=== PATIENT | female | born 1960 | race Caucasian/White ===

== ENCOUNTER 2017-11-27 08:06 | Emergency (ER) | payer MEDICARE, MEDICAID ==
[2017-11-27] MEDS ORDERED: Sodium Chloride 0.9% 10 ML Syringe FLUSH PRN (08:26)
--- NOTE | 2017-11-27 08:31 | EDM.PDOC ---
ED HPI GENERAL MEDICAL PROBLEM - General Chief Complaint: Respiratory Problem Stated Complaint: SENT FROM DAY SURGERY Time Seen by Provider: 11/27/17 08:13 Source of Information: Reports: Patient History Limitations: Reports: No Limitations - History of Present Illness INITIAL COMMENTS - FREE TEXT/NARRATIVE: 57-year-old female presents to the ED at the request of day surgery. She presented to day surgery to date for potential bladder sling procedure. She is a patient of Dr. Knox. She was identified to have O2 sats of only 88% on room air. This produced a cancellation of her surgery she was placed on oxygen 2 L/m by nasal cannula and transferred to the ED. Apparently labs were drawn in the surgical stepdown unit. Blood pressure is 98/58. She denies fever. She has a chronic smoker's cough. Is complaining of some left-sided chest pain which is described as a dull achy discomfort. She is a smoker --a pack and a half per day. This has COPD by history alone. She's never required home oxygen therapy. She reports that over the last 3 days she's become increasingly dyspneic on minimal exertion.Dyspnea is much worse than normal . Denies any associated fever or chills. No recent upper respiratory tract infections. No history of myocardial infarction. She was going to have a bladder sling procedure primarily performed because of stress incontinence. Previous abdominal surgeries isthat of laparoscopic-assisted vaginal hysterectomy and BSO. Is unclear whether the ovaries remain. Onset: Today (Identified to be hypoxic when she presented for potential surgery this morning.) Onset Date: 11/27/17 (Dr. Moreira indicates that her respiratory function color seem to have changed dramatically since he reviewed her last week in the clinic for her preoperative assessment.) Duration: Day(s):, Getting Worse (Patient has not felt well with increased shortness of breath on minimal exertion for the last 2-3 days.) Location: Reports: Chest Quality: Reports: Ache Severity: Moderate Improves with: Reports: Rest Worsens with: Reports: Movement Context: Denies: Activity, Exercise, Lifting, Sick Contact, Trauma, Other Associated Symptoms: Reports: Chest Pain (Chronic cough but usually not that productive. Chest pain left lateral chest wall.), Cough, Malaise, Shortness of Breath, Weakness. Denies: No Other Symptoms, Confusion ( Leon is a deep aching discomfort. No pleuritic component to the pain), cough w sputum, Diaphoresis, Fever/Chills, Headaches, Loss of Appetite, Nausea/Vomiting, Rash ( On minimal exertion.), Seizure, Syncope Treatments MANAGER PRIMARY CARE: Reports: Other (see below) (None. Denies any recent changes to her medications other than a change in inhaler for the last few weeks.) Left Chest Pain Score (Numeric/FACES): 0 - Related Data Allergies Allergy/AdvReac Type Severity Reaction Status Date / Time No Known Allergies Allergy Verified 11/27/17 08:56 Home Meds: Home Meds Omeprazole 40 mg PO DAILY 02/22/16 [History] Paliperidone [Invega] 9 mg PO BEDTIME 02/22/16 [History] Sertraline [Zoloft] 100 mg PO BEDTIME 02/22/16 [History] atorvaSTATin [Lipitor] 20 mg PO DAILY 02/22/16 [History] traZODone HCl [Trazodone HCl] 150 mg PO BEDTIME 02/22/16 [History] Acetaminophen 1,000 mg PO DAILY PRN 11/27/17 [History] Albuterol [Proventil HFA] 1 - 2 puff INH ASDIRECTED PRN 11/27/17 [History] Albuterol/Ipratropium [DuoNeb 3.0-0.5 MG/3 ML] 3 ml .XX BID #60 neb 11/27/17 [Rx ] Benztropine Mesylate 2 mg PO BEDTIME 11/27/17 [History] Budesonide/Formoterol Fumarate [Symbicort 80-4.5 Mcg Inhaler] 1 puff INH BID 08/16 [History] Omeprazole 20 mg PO BEDTIME 11/27/17 [History] predniSONE [Deltasone] 20 mg PO ASDIRECTED #15 tablet 11/27/17 [Rx] Past Medical History Cardiovascular History: Reports: High Cholesterol, SOB on Exertion Respiratory History: Reports: COPD, SOB Genitourinary History: Reports: Other (See Below) Other Genitourinary History: leakage of bladder Psychiatric History: Reports: Anxiety, Bipolar, Schizophrenia Other Psychiatric History: borderline schizophrenia 2006 - Past Surgical History Female Surgical History: Reports: Hysterectomy, Tubal Ligation Musculoskeletal Surgical History: Reports: Arthroscopic Knee Social & Family History - Family History Cardiac: Reports: None Respiratory: Reports: None GI: Reports: None : Reports: None OBGYN: Reports: None Musculoskeletal: Reports: None Psychiatric: Reports: Schizophrenia Other Psychiatric Family History: sisters Endocrine/Metabolic: Reports: Diabetes, type II Other Endocrine/Metabolic Family History: mother and brother Hematologic: Reports: None Dermatologic: Reports: None Oncologic: Reports: None - Tobacco Use Smoking Status *Q: Current Every Day Smoker Years of Tobacco use: 40 Packs/Tins Daily: 1 - Alcohol Use Days Per Week of Alcohol Use: 0 - Recreational Drug Use Recreational Drug Use: No Drug Use in Last 12 Months: No - Living Situation & Occupation Living situation: Reports: Occupation: Unemployed ED ROS GENERAL - Review of Systems Review Of Systems: See Below Constitutional: Reports: Malaise, Weakness, Fatigue. Denies: Fever, Chills HEENT: Reports: No Symptoms Respiratory: Reports: Shortness of Breath, Cough. Denies: Wheezing, Pleuritic Chest Pain, Sputum, Hemoptysis (Chronic cough but not bringing up any sputum.) Cardiovascular: Reports: Chest Pain (Has a deep aching discomfort left lateral chest wall.), Dyspnea on Exertion (Much). Denies: Blood Pressure Problem, Claudication, Edema, Lightheadedness, Orthopnea, Palpitations, PND Endocrine: Reports: Fatigue GI/Abdominal: Reports: No Symptoms : Reports: Incontinence Musculoskeletal: Reports: No Symptoms Skin: Reports: No Symptoms Neurological: Reports: No Symptoms Psychiatric: Reports: Depression, Other (History suggests that she has bipolar affective disorder.) Hematologic/Lymphatic: Reports: No Symptoms Immunologic: Reports: No Symptoms ED EXAM, GENERAL - Physical Exam Exam: See Below Exam Limited By: No Limitations General Appearance: Alert, WD/WN, Anxious, Other (Color is grayish in color. Smells cigarette smoke noted. O2 sats are 95-97% on 2 L of oxygen by nasal cannula.) Eye Exam: Bilateral Eye: Normal Inspection Ears: Normal TMs Throat/Mouth: Normal Inspection, Normal Lips, Normal Oropharynx, Other Head: Atraumatic, Normocephalic (Tongue is a little dry. She's been fasting overnight.) Neck: Normal Inspection, Supple, Non-Tender, Full Range of Motion, Other ( Reports that she has a chronic pain along her left mandible that radiates up to the parietal scalp on the left side.). No: Lymphadenopathy (L), Lymphadenopathy (R) Respiratory/Chest: No Respiratory Distress, Chest Non-Tender, Rales (There are rales in both lower lobes worse on the left as compared to the right.), Rhonchi (Scattered rhonchi upper anterior chest.). No: Wheezing Cardiovascular: Regular Rate, Rhythm, No Edema, No Gallop, No Murmur, No Rub Peripheral Pulses: 2+: Posterior Tibial (L), Posterior Tibial (R), Dorsalis Pedis (L), Dorsalis Pedis (R) GI/Abdominal: Normal Bowel Sounds, Soft, Non-Tender, No Organomegaly, No Abnormal Bruit, No Mass, Pelvis Stable Back Exam: Normal Inspection, Full Range of Motion Extremities: Normal Inspection, Normal Range of Motion, Non-Tender, No Pedal Edema Neurological: Alert, Oriented, CN II-XII Intact, Normal Cognition Psychiatric: Anxious Skin Exam: Warm, Intact, Other (Grayish in color. No central or peripheral cyanosis.) EKG INTERPRETATION EKG Date: 11/27/17 Time: 07:30 Rhythm: Other (Sinus rhythm with frequent unifocal PVCs.) Rate (Beats/Min): 84 [place]: Normal P-Wave: Enlarged (Right atrial hypertrophy pattern evident.) QRS: Other (Diffuse mildly decreased voltage in the precordial leads.) ST-T: Normal QT: Normal EKG Interpretation Comments: Abnormal ECG Course - Vital Signs Last Recorded V/S: Last Vital Signs Temp 36.1 C 11/27/17 08:15 Pulse 82 11/27/17 08:15 Resp 14 11/27/17 08:15 BP 122/83 11/27/17 08:15 Pulse Ox 95 11/27/17 09:22 - Orders/Labs/Meds Orders: Active Orders 24 hr Category Date Time Status Oxygen Therapy [RC] ASDIRECTED Care 11/27/17 08:26 Active Peripheral IV Care [RC] . DIRECTED Care 11/27/17 08:26 Active RT Aerosol Therapy [RC] ASDIRECTED Care 11/27/17 09:02 Active Sodium Chloride 0.9% [Saline Flush] Med 11/27/17 08:26 Active 10 ml FLUSH ASDIRECTED PRN Peripheral IV Insertion Adult [OM.PC] Stat Oth 11/27/17 08:25 Ordered Medication Orders Sodium Chloride (Saline Flush) 10 ml FLUSH ASDIRECTED PRN PRN Reason: Keep Vein Open Last Admin: 11/27/17 08:55 Dose: 10 ml Labs: Laboratory Tests 11/27/17 11/27/17 11/27/17 Range/Units 07:16 07:16 07:16 WBC 10.44 H (3.98-10.04) K/mm3 RBC 5.42 H (3.98-5.22) M/mm3 Hgb 16.6 H (11.2-15.7) gm/L Hct 49.5 H (34.1-44.9) % MCV 91.3 (79.4-94.8) fl MCH 30.6 (25.6-32.2) pg MCHC 33.5 (32.2-35.5) g/dl RDW Std Deviation 47.6 H (36.4-46.3) fL Plt Count 272 (182-369) K/mm3 MPV 11.4 (9.4-12.3) fl Neutrophils % (Manual) 59 (40-60) % Band Neutrophils % 0 (0-10) % Lymphocytes % (Manual) 36 (20-40) % Atypical Lymphs % 0 % Monocytes % (Manual) 4 (2-10) % Eosinophils % (Manual) 1 (0.7-5.8) % Basophils % (Manual) 0 L (0.1-1.2) Platelet Estimate Adequate RBC Morph Comment Normal D-Dimer, Quantitative 0.32 (0.19-0.50) mg/L Sodium 136 (136-145) mEq/L Potassium 3.7 (3.5-5.1) mEq/L Chloride 99 (98-107) mEq/L Carbon Dioxide 27 (21-32) mEq/L Anion Gap 13.7 (5-15) BUN 6 L (7-18) mg/dL Creatinine 0.8 (0.55-1.02) mg/dL Est Cr Clr Drug Dosing 77.32 mL/min Estimated GFR (MDRD) > 60 (>60) mL/min BUN/Creatinine Ratio 7.5 L (14-18) Glucose 130 H (74-106) mg/dL Calcium 9.5 (8.5-10.1) mg/dL Magnesium 1.8 (1.8-2.4) mg/dl Total Bilirubin 0.7 (0.2-1.0) mg/dL AST 27 (15-37) U/L ALT 26 (14-59) U/L Alkaline Phosphatase 103 (46-116) U/L Troponin I < 0.017 (0.00-0.056) ng/mL C-Reactive Protein 0.6 (<1.0) mg/dL NT-Pro-B Natriuret Pep (0-125) pg/mL Total Protein 7.8 (6.4-8.2) g/dl Albumin 4.0 (3.4-5.0) g/dl Globulin 3.8 gm/dL Albumin/Globulin Ratio 1.1 (1-2) 11/27/17 Range/Units 07:16 WBC (3.98-10.04) K/mm3 RBC (3.98-5.22) M/mm3 Hgb (11.2-15.7) gm/L Hct (34.1-44.9) % MCV (79.4-94.8) fl MCH (25.6-32.2) pg MCHC (32.2-35.5) g/dl RDW Std Deviation (36.4-46.3) fL Plt Count (182-369) K/mm3 MPV (9.4-12.3) fl Neutrophils % (Manual) (40-60) % Band Neutrophils % (0-10) % Lymphocytes % (Manual) (20-40) % Atypical Lymphs % % Monocytes % (Manual) (2-10) % Eosinophils % (Manual) (0.7-5.8) % Basophils % (Manual) (0.1-1.2) Platelet Estimate RBC Morph Comment D-Dimer, Quantitative (0.19-0.50) mg/L Sodium (136-145) mEq/L Potassium (3.5-5.1) mEq/L Chloride (98-107) mEq/L Carbon Dioxide (21-32) mEq/L Anion Gap (5-15) BUN (7-18) mg/dL Creatinine (0.55-1.02) mg/dL Est Cr Clr Drug Dosing mL/min Estimated GFR (MDRD) (>60) mL/min BUN/Creatinine Ratio (14-18) Glucose (74-106) mg/dL Calcium (8.5-10.1) mg/dL Magnesium (1.8-2.4) mg/dl Total Bilirubin (0.2-1.0) mg/dL AST (15-37) U/L ALT (14-59) U/L Alkaline Phosphatase (46-116) U/L Troponin I (0.00-0.056) ng/mL C-Reactive Protein (<1.0) mg/dL NT-Pro-B Natriuret Pep 12 (0-125) pg/mL Total Protein (6.4-8.2) g/dl Albumin (3.4-5.0) g/dl Globulin gm/dL Albumin/Globulin Ratio (1-2) Meds: Medications Generic Name Dose Route Start Last Admin Trade Name Freq PRN Reason Stop Dose Admin Sodium Chloride 10 ml 11/27/17 08:26 11/27/17 08:55 Saline Flush FLUSH 10 ml ASDIRECTED PRN Administration Keep Vein Open Discontinued Medications Generic Name Dose Route Start Last Admin Trade Name Freq PRN Reason Stop Dose Admin Albuterol/Ipratropium 3 ml 11/27/17 09:01 11/27/17 09:21 Duoneb 3.0-0.5 Mg/3 Ml NEB 11/27/17 09:02 3 ml ONETIME ONE Administration - Radiology Interpretation Free Text/Narrative:: 57-year-old female brought to the ED from the surgical unit where she was planned to have a surgical sling procedure on her bladder this morning. Her O2 sats on room air were 88% and therefore the procedure was canceled. She is complaining of increased dyspnea on minimal exertion over the last 3 or 4 days. She is a smoker of a pack and half of cigarettes per day. She does have a chronic cough but denies any fever or chills. She's complaining of some left- sided chest pain which is described as deep and dull and aching. She's been placed on oxygen at 2 L/m and her sats are 95-97% on room air. Clinically she has known COPD and is on inhalers for this. On examination she appears to have some crackles in both bases suggestive of mild congestive failure. Will therefore have a cardiac workup and as well as a d-dimer assay. Chest x-ray. ECG was done in the surgical suite and I have previously read it. It revealed sinus rhythm at 84/m with frequent unifocal PVCs. There is evidence of left right atrial hypertrophy suggesting pulmonary hypertension. Plan 1 view chest x- ray will be done. She'll be left on oxygen 2 L/m but this time. Peripheral IV started. Routine labs to be collected. Will provide a DuoNeb treatment at this time - Re-Assessments/Exams Free Text/Narrative Re-Assessment/Exam: 11/27/17 09:05 portal chest x-ray reveals slight hyperinflated lung quintanilla. Headache silhouette is within normal limits. There is no pleural effusions or pneumothorax. There is perhaps mild diffuse slight vascular congestion pattern. 11/27/17 10:26 Labs are back. White count is mildly elevated at 10.44. Differential is 59% it feels and no bands reported. Hemoglobin mildly elevated at 16.6 with hematocrit of 49.5. I.e. mild hemoconcentration. The count is normal at 272,000. D-dimer is normal at 0.32. Sodium is 136 with a potassium of 3.7. Chloride is 99 with a bicarbonate 27. Anion gap is 13.7. BUN is 6 with a creatinine of 0.8. GFR is greater than 60. Glucose is 1:30. Calcium is 9.5. Magnesium 1.8. Liver function normal. Troponin I is less than 0.017. C-reactive protein is 0.6. BNP is 12. Therefore labs do not suggest any infective process. They also reveal no signs of congestive heart failure or blood clot in the lung. Therefore her current hypoxia is due to exacerbation of her COPD. Take her off her oxygen now and see where she desaturates to on room air. 11/27/17 11:00: Patient's O2 sat stayed 89-93% on room air. He did go down course with movement. Plan I'm going to arrange for her to have a home nebulizer machine. Will prescribe DuoNeb nebs. One ampule every morning and one before bed to try and stabilize her COPD. She has inhalers which she is to continue use on a when necessary basis. Symbicort is supposed to be used once daily. In the morning to be placed on a short course of prednisone 20 mg twice a day for 5 days and once daily in the morning for another 5 days. She will consult with Dr. Ludy to see where she will go out in [place] for definitive hysterectomy. Her anesthesia needs exceed our facility and therefore she needs to be in a larger institution as she may well end up on the vent for a period of time. She was encouraged to follow-up with her private primary care practitioner to arrange a stop smoking cessation program. She is currently smoking for 1-1/2-3 packs per day. Departure - Departure Time of Disposition: 11:10 Disposition: Home, Self-Care 01 Condition: Fair Clinical Impression: COPD exacerbation - Discharge Information Prescriptions: Albuterol/Ipratropium [DuoNeb 3.0-0.5 MG/3 ML] 3 ml .XX BID #60 neb predniSONE [Deltasone] 20 mg PO ASDIRECTED #15 tablet Instructions: Chronic Obstructive Pulmonary Disease Exacerbation, [id number] Referrals: Indy Davidson PA-C [Primary Care Provider] - Forms: ED Department Discharge Additional Instructions: Evaluation the emergency room this morning in regards to low O2 sats identified preoperatively in the surgical suite. He was thus sent to the ED for further evaluation in this regard. Examination revealed O2 sats of 88-92% at rest. They did vagal lower with walking and exertion. You are near need for oxygen supplementation continuously. Need to consider very hard need to stop smoking. Complete workup done through the ED reveals normal heart shadow and statement of obstructive lung disease without any signs of infection. Similarly no blood clots were identified within the lungs. There is no signs that there is heart related illness or fluid buildup in the lungs. Therefore the cause of the low O2 sats is simply an exacerbation or worsening of your underlying COPD/ emphysema. Suggest treatment with a nebulizer machine at home using DuoNeb in the morning and before bed and using her other inhalers as previously instructed. Suggest a short course of Deltasone 20 mg twice daily with breakfast and supper for 5 days and then 1 tablet in morning only for another [address] Moreira a referral to a larger hospital that can manage her anesthesia needs before contemplating hysterectomy. Follow-up with personal care physician to adopt a smoking cessation program. Prescription written for you to purchase a nebulizer machine from [employer] which is on by [employer]. - My Orders Last 24 Hours: My Active Orders 11/27/17 08:25 Peripheral IV Insertion Adult [OM.PC] Stat 11/27/17 08:26 Oxygen Therapy [RC] ASDIRECTED Peripheral IV Care [RC] . DIRECTED Sodium Chloride 0.9% [Saline Flush] 10 ml FLUSH ASDIRECTED PRN 11/27/17 09:02 RT Aerosol Therapy [RC] ASDIRECTED - Assessment/Plan Last 24 Hours: My Active Orders 11/27/17 08:25 Peripheral IV Insertion Adult [OM.PC] Stat 11/27/17 08:26 Oxygen Therapy [RC] ASDIRECTED Peripheral IV Care [RC] . DIRECTED Sodium Chloride 0.9% [Saline Flush] 10 ml FLUSH ASDIRECTED PRN 11/27/17 09:02 RT Aerosol Therapy [RC] ASDIRECTED
[2017-11-27] MEDS ORDERED: Albuterol/Ipratropium 3.0-0.5 MG/3 ML Neb Soln NEB ONE (09:01)
--- NOTE | 2017-11-27 09:17 | CR ---
Chest: Portable view of the chest was obtained. Comparison: Prior chest CT of 05/03/17 and chest x-ray of 02/24/16. Slight apical pleural thickening is noted. Lungs are clear without acute parenchymal densities. Heart size and mediastinum are normal. Bony structures are grossly intact. Impression: 1. Nothing acute is seen on portable chest x-ray. Diagnostic code #2
[2017-11-27 11:52] VITALS: BP 126/68
== END 2017-11-27 11:33 | disposition home or self-care (01) ==
LOC: JD.ED 08:06 → SUPCPDRO 08:06 → JD.ED 11:33
DX: J44.1 Chronic obstructive pulmonary disease with (acute) exacerbation (principal); E78.00 Pure hypercholesterolemia, unspecified; F17.210 Nicotine dependence, cigarettes, uncomplicated; Z79.899 Other long term (current) drug therapy
CPT/HCPCS: 36415; 71045; 80053; 83735; 83880; 84484; 85025; 85379; 86140; 94640; 99285; J7050; 93010; 99283-25

== ENCOUNTER → 2017-11-27 | Day surgery (SDC) | payer MEDICARE, MEDICAID ==
[~2017-11-27] MED LIST: Albuterol 0.083% 2.5 MG/3 ML Neb Soln NEB ONE; Lactated Ringers 1,000 ML IV SCH; Lidocaine 1% 0 ML ONE; Lidocaine 1% with EPINEPHrine 1:100,000 20 ML MDV ONE; Lidocaine 1%/Sod Bicarbonate in NS 8.4% 1 ML Syringe IDERM PRN; Midazolam 1 MG/ML 2 ML SDV ONE; Ondansetron 4 MG/2 ML SDV ONE; Propofol 200 MG/20 ML SDV ONE; Rocuronium 50 MG/5 ML Vial ONE; Sodium Chloride 0.9% 10 ML Syringe FLUSH PRN; Sodium Chloride 0.9% 50 ML SDV ONE; ceFAZolin 1 GM Vial ONE; fentaNYL 250 MCG/5 ML SDV ONE
[2017-11-27 07:18] VITALS: BP 131/88
--- NOTE | 2017-11-27 07:51 | PCM.PREANE ---
Preanesthetic Assessment - Procedure Proposed Procedure: Patient 85%on room air. IV started. Neb treatment given. O2 on at 2 L per NC. Sats increased to 94. Took O2 off sats 86%. Discussed case with Dr. Moreira- Dr. Moreira cancelled case. Discussed with patient. Agrees to cancel. Patient going to ER for treatment.Justa GARZON - Anesthesia/Transfusion/Family Hx Anesthesia History: Prior Anesthesia Without Reaction Transfusion History: No Prior Transfusion(s) Type of Transfusion Reactions: Reports: Unknown - Review of Systems Pulmonary: Shortness of Breath, Wheezing, Cough Cardiovascular: Dyspnea on Exertion - Physical Assessment NPO Status Date: 11/26/17 NPO Status Time: 22:00 O2 Sat by Pulse Oximetry: 85 (85 on RA) Respiratory Rate: 20 Vital Signs: Last Vital Signs Temp 97.1 F 11/27/17 07:00 Pulse 101 H 11/27/17 07:00 Resp 20 11/27/17 07:00 BP 131/88 11/27/17 07:00 Pulse Ox 94 L 11/27/17 07:30 Height: 5 ft 7 in Weight: 86.183 kg Mental Status: Alert & Oriented x3 Lungs: Decreased Breath Sounds, Crackles, Wheezing - Allergies Allergies/Adverse Reactions: Allergies Allergy/AdvReac Type Severity Reaction Status Date / Time No Known Allergies Allergy Verified 02/23/16 07:23 - Blood Blood Available: Yes - Acknowledgements Anesthesia Type Planned: General Anesthesia Pt an Appropriate Candidate for the Planned Anesthesia: No Alternatives and Risks of Anesthesia Discussed w Pt/Guardian: Yes PreAnesthesia Questionnaire Cardiovascular History: Reports: High Cholesterol, SOB on Exertion Respiratory History: Reports: COPD, SOB Genitourinary History: Reports: Other (See Below) Other Genitourinary History: leakage of bladder Psychiatric History: Reports: Anxiety, Bipolar, Schizophrenia Other Psychiatric History: borderline schizophrenia 2007 - Past Surgical History Female Surgical History: Reports: Hysterectomy, Tubal Ligation Musculoskeletal Surgical History: Reports: Arthroscopic Knee - SUBSTANCE USE Smoking Status *Q: Current Every Day Smoker Tobacco Use Within Last Twelve Months: Cigarettes Days Per Week of Alcohol Use: 0 Recreational Drug Use History: No - HOME MEDS Home Medications: Home Meds Benztropine Mesylate 1 mg PO BID 02/22/16 [History] Omeprazole 20 mg PO BID 02/22/16 [History] Paliperidone [Invega] 9 mg PO DAILY 02/22/16 [History] Sertraline [Zoloft] 10 mg PO DAILY 02/22/16 [History] atorvaSTATin [Lipitor] 20 mg PO DAILY 02/22/16 [History] traZODone HCl [Trazodone HCl] 150 mg PO BEDTIME 02/22/16 [History] Ibuprofen [IJD: Ibuprofen] 600 mg PO Q4HR PRN #0 tablet 02/24/16 [Rx] Albuterol [Proventil HFA] 1 puff INH ASDIRECTED PRN 11/27/17 [History] Budesonide/Formoterol Fumarate [Symbicort 80-4.5 Mcg Inhaler] 1 puff INH ASDIRECTED 11/27/17 [History] - CURRENT (IN HOUSE) MEDS Current Meds: Current Medications Lactated Ringer's (Ringers, Lactated) 1,000 mls @ 125 mls/hr IV ASDIRECTED JOSÉ Stop: 11/27/17 23:00 Lidocaine/Sodium Bicarbonate (Buffered Lidocaine 1% In Ns 8.4%) 0.25 ml IDERM ONETIME PRN PRN Reason: Prior to IV Start Stop: 11/27/17 18:00 Sodium Chloride (Saline Flush) 10 ml FLUSH ASDIRECTED PRN PRN Reason: Keep Vein Open Stop: 11/27/17 18:00 Discontinued Medications Albuterol (Proventil Neb Soln) 2.5 mg NEB ONETIME ONE Stop: 11/27/17 07:20 Last Admin: 11/27/17 07:30 Dose: 2.5 mg Cefazolin Sodium (Ancef) Confirm Administered Dose 2 gm .ROUTE .STK-MED ONE Stop: 11/27/17 07:19 Fentanyl (Sublimaze) Confirm Administered Dose 250 mcg .ROUTE .STK-MED ONE Stop: 11/27/17 07:15 Lidocaine HCl (Xylocaine-Mpf 1%) Confirm Administered Dose 4 mls @ as directed .ROUTE .STK-MED ONE Stop: 11/27/17 07:14 Lidocaine/Epinephrine (Xylocaine 1% With Epinephrine 1:100,000) Confirm Administered Dose 20 ml .ROUTE .STK-MED ONE Stop: 11/27/17 07:08 Midazolam HCl (Versed 1 Mg/Ml) Confirm Administered Dose 2 mg .ROUTE .STK-MED ONE Stop: 11/27/17 07:14 Ondansetron HCl (Zofran) Confirm Administered Dose 4 mg .ROUTE .[facility] ONE Stop: 11/27/17 07:14 Propofol (Diprivan 20 Ml) Confirm Administered Dose 200 mg .ROUTE .[facility] ONE Stop: 11/27/17 07:14 Rocuronium [place] (Zemuron) Confirm Administered Dose 50 mg .ROUTE .[facility] ONE Stop: 11/27/17 07:14 Sodium Chloride (Normal Saline) Confirm Administered Dose 50 ml .ROUTE .[facility] ONE Stop: 11/27/17 07:09
--- NOTE | 2017-11-27 08:11 | PCM.SN ---
- Free Text/Narrative Note: Preoperative evaluation included pulse oximetry and PaO2 on room air was 83. With O2 by nasal cannula the PaO2 increase to 96. Due to concern and the fact that this planned surgery was elective surgery, the surgery was canceled and patient sent to the emergency room for evaluation of her low PaO2. Patient will keep her appointment on 12/04/17. She will be sent to [place] for further evaluation of her problem with low 02 and I recommended to her surgery performed that she consider being done in [place] were they have additional specialist to help build her postop management
== END ==
LOC: JD.SDS 06:44
PROVIDERS: ATTEND Obstetrics & Gynecology
DX: Z53.8 Procedure and treatment not carried out for other reasons (principal); E78.00 Pure hypercholesterolemia, unspecified; J44.9 Chronic obstructive pulmonary disease, unspecified; F41.9 Anxiety disorder, unspecified; F20.9 Schizophrenia, unspecified; F17.210 Nicotine dependence, cigarettes, uncomplicated; Z79.899 Other long term (current) drug therapy
CPT/HCPCS: 36415; 86850; 86900; 86901; 93005; 94640; J0690; J2001; J2250; J2405; J2704; J3010

== ENCOUNTER 2019-05-31 07:21 | Emergency (ER) | payer MEDICAID, MEDICARE ==
[2019-05-31 07:34] VITALS: BP 140/64; PULSE 95
[2019-05-31] MEDS ORDERED: Ketorolac 60 MG/2 ML SDV IM ONE (07:43)
[2019-05-31] MEDS ORDERED: Albuterol/Ipratropium 3.0-0.5 MG/3 ML Neb Soln NEB ONE (07:43)
[2019-05-31] MEDS ORDERED: FLU Vacc QS2019-20(6MOS+)/PF 60 MCG/0.5 ML SYRINGE IM ONE (07:45)
--- NOTE | 2019-05-31 07:49 | EDM.PDOC ---
ED HPI GENERAL MEDICAL PROBLEM - General Chief Complaint: Back Pain or Injury Stated Complaint: RT SIDE PAIN FROM CHEST TO BACK Time Seen by Provider: 05/31/19 07:30 Source of Information: Reports: Patient History Limitations: Reports: No Limitations - History of Present Illness INITIAL COMMENTS - FREE TEXT/NARRATIVE: The patient presents with upper right back and right chest pain. This all started a few days ago when she lifted her 20 pound grandchild onto the couch she was laying on. She has pain now when she moves in the upper right back near the scapula. She also has pain that radiates to her right chest. She denies fever, chills, or cough. She does have COPD and wears oxygen at home at times. She smokes and she has some shortness of breath but that is normal for her. She had some abdominal pain before this pain started. She says it was in the lower abdomen. She had nausea and some diarrhea with it. Those symptoms have improved. Onset: Gradual Duration: Day(s): Location: Reports: Chest, Back Quality: Reports: Sharp Severity: Moderate Improves with: Reports: Immobilization Worsens with: Reports: Movement Context: Reports: Activity (lifting her 20 pound grandchild) Associated Symptoms: Reports: Chest Pain, Shortness of Breath. Denies: Cough, Fever/Chills, Headaches, Nausea/Vomiting Right Axillary Pain Score (Numeric/FACES): 10 - Related Data Allergies Allergy/AdvReac Type Severity Reaction Status Date / Time No Known Allergies Allergy Verified 05/31/19 07:29 Home Meds: Home Meds Omeprazole 40 mg PO DAILY 02/22/16 [History] Paliperidone [Invega] 9 mg PO BEDTIME 02/22/16 [History] Sertraline [Zoloft] 100 mg PO BEDTIME 02/22/16 [History] atorvaSTATin [Lipitor] 20 mg PO DAILY 02/22/16 [History] traZODone HCl [Trazodone HCl] 150 mg PO BEDTIME 02/22/16 [History] Acetaminophen 1,000 mg PO DAILY PRN 11/27/17 [History] Albuterol [Proventil HFA] 1 - 2 puff INH ASDIRECTED PRN 11/27/17 [History] Albuterol/Ipratropium [DuoNeb 3.0-0.5 MG/3 ML] 3 ml .XX BID #60 neb 11/27/17 [Rx ] Benztropine Mesylate 2 mg PO BEDTIME 11/27/17 [History] Budesonide/Formoterol Fumarate [Symbicort 80-4.5 Mcg Inhaler] 1 puff INH BID 08/16 [History] Omeprazole 20 mg PO BEDTIME 11/27/17 [History] Cyclobenzaprine [Flexeril] 10 mg PO TID PRN #20 tab 05/31/19 [Rx] Naproxen [Naprosyn] 500 mg PO Q12HR PRN #60 tab 05/31/19 [Rx] Past Medical History HEENT History: Reports: Impaired Vision Other HEENT History: wears eyeglasses Cardiovascular History: Reports: High Cholesterol, SOB on Exertion Other Cardiovascular History: states "I've always had palpitations." Respiratory History: Reports: COPD, SOB Gastrointestinal History: Reports: GERD Genitourinary History: Reports: Other (See Below) Other Genitourinary History: leakage of bladder [employer]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 - Infectious Disease History Infectious Disease History: Reports: Chicken Pox - Past Surgical History HEENT Surgical History: Reports: Tonsillectomy Female Surgical History: Reports: Hysterectomy, Tubal Ligation Musculoskeletal Surgical History: Reports: Arthroscopic Knee Social & Family History - Family History Cardiac: Reports: None Respiratory: Reports: None GI: Reports: None : Reports: None OBGYN: Reports: None Musculoskeletal: Reports: None Psychiatric: Reports: Schizophrenia Other Psychiatric Family History: sisters Endocrine/Metabolic: Reports: Diabetes, type II Other Endocrine/Metabolic Family History: mother and brother Hematologic: Reports: None Dermatologic: Reports: None Oncologic: Reports: None - Tobacco Use Smoking Status *Q: Current Every Day Smoker Years of Tobacco use: 40 Packs/Tins Daily: 1 - Caffeine Use Caffeine Use: Reports: Coffee - Recreational Drug Use Recreational Drug Use: No - Living Situation & Occupation Living situation: Reports: Occupation: Unemployed ED ROS GENERAL - Review of Systems Review Of Systems: See Below Constitutional: Reports: No Symptoms HEENT: Reports: No Symptoms Respiratory: Reports: Shortness of Breath. Denies: Cough Cardiovascular: Reports: Chest Pain Endocrine: Reports: No Symptoms GI/Abdominal: Reports: No Symptoms : Reports: No Symptoms Musculoskeletal: Reports: Back Pain (Upper right near the scapula) ED EXAM, UPPER BACK/NECK PAIN - Physical Exam Exam: See Below Exam Limited By: No Limitations General Appearance: Alert, No Apparent Distress Ears Exam: Normal External Exam Nose Exam: Normal Inspection Head Exam: Atraumatic, Normocephalic Neck Exam: Non-Tender, Normal Alignment, Normal Inspection Cardiovascular/Respiratory: Regular Rate, Rhythm, No M/R/G, Wheezing (Moderate) , Other (Pain upon palpation to the right chest) GI/Abdominal: Normal Bowel Sounds, Soft, Non-Tender Back Exam: Other (Pain upon palpation to the medial aspect of the right scapula) Extremities: Normal Inspection EKG INTERPRETATION EKG Date: 05/31/19 Time: 07:46 Rhythm: NSR Rate (Beats/Min): 81 [place]: Normal P-Wave: Present QRS: Normal ST-T: Normal QT: Normal Course - Vital Signs Last Recorded V/S: Last Vital Signs Temp 98.1 F 05/31/19 07:29 Pulse 95 05/31/19 07:29 Resp 14 05/31/19 07:29 BP 140/64 05/31/19 07:29 Pulse Ox 92 L 05/31/19 08:23 - Orders/Labs/Meds Orders: Active Orders 24 hr Category Date Time Status Cardiac Monitoring [RC] . DIRECTED Care 05/31/19 07:42 Active EKG Documentation Completion [RC] STAT Care 05/31/19 07:43 Active Influenza Vaccine Charge [RC] .DISCHARGE Care 05/31/19 07:37 Active RT Aerosol Therapy [RC] ASDIRECTED Care 05/31/19 07:43 Active Chest 2V [CR] Stat Exams 05/31/19 07:43 Taken Labs: Laboratory Tests 05/31/19 05/31/19 05/31/19 Range/Units 08:09 08:09 08:09 WBC 9.47 (3.98-10.04) K/mm3 RBC 5.57 H (3.98-5.22) M/mm3 Hgb 16.9 H (11.2-15.7) gm/dl Hct 52.1 H (34.1-44.9) % MCV 93.5 (79.4-94.8) fl MCH 30.3 (25.6-32.2) pg MCHC 32.4 (32.2-35.5) g/dl RDW Std Deviation 46.2 (36.4-46.3) fL Plt Count 279 (182-369) K/mm3 MPV 10.9 (9.4-12.3) fl Neut % (Auto) 72.3 H (34.0-71.1) % Lymph % (Auto) 17.8 L (19.3-51.7) % [place] % (Auto) 8.3 (4.7-12.5) % Eos % (Auto) 1.2 (0.7-5.8) Baso % (Auto) 0.3 (0.1-1.2) % Neut # (Auto) 6.84 H (1.56-6.13) K/mm3 Lymph # (Auto) 1.69 (1.18-3.74) K/mm3 [place] # (Auto) 0.79 H (0.24-0.36) K/mm3 Eos # (Auto) 0.11 (0.04-0.36) K/mm3 Baso # (Auto) 0.03 (0.01-0.08) K/mm3 D-Dimer, Quantitative 0.50 (0.19-0.50) mg/L Sodium 139 (136-145) mEq/L Potassium 3.9 (3.5-5.1) mEq/L Chloride 102 (98-107) mEq/L Carbon Dioxide 30 (21-32) mEq/L Anion Gap 10.9 (5-15) BUN 6 L (7-18) mg/dL Creatinine 0.8 (0.55-1.02) mg/dL Est Cr Clr Drug Dosing 76.38 mL/min Estimated GFR (MDRD) > 60 (>60) mL/min BUN/Creatinine Ratio 7.5 L (14-18) Glucose 96 (74-106) mg/dL Calcium 9.2 (8.5-10.1) mg/dL Total Bilirubin 0.5 (0.2-1.0) mg/dL AST 23 (15-37) U/L ALT 22 (14-59) U/L Alkaline Phosphatase 80 (46-116) U/L Troponin I < 0.017 (0.00-0.056) ng/mL Total Protein 7.6 (6.4-8.2) g/dl Albumin 3.7 (3.4-5.0) g/dl Globulin 3.9 gm/dL Albumin/Globulin Ratio 1.0 (1-2) Urine Color (Yellow) Urine Appearance (Clear) Urine pH (5.0-8.0) Ur Specific [place] (1.005-1.030) Urine Protein (Negative) Urine Glucose (UA) (Negative) Urine Ketones (Negative) Urine Occult Blood (Negative) Urine Nitrite (Negative) Urine Bilirubin (Negative) Urine Urobilinogen (0.2-1.0) Ur Leukocyte Esterase (Negative) Urine RBC (0-5) /hpf Urine WBC (0-5) /hpf Ur Epithelial Cells (0-5) /hpf Urine Bacteria (FEW) /hpf Urine Mucus (FEW) /hpf 05/31/19 Range/Units 08:30 WBC (3.98-10.04) K/mm3 RBC (3.98-5.22) M/mm3 Hgb (11.2-15.7) gm/dl Hct (34.1-44.9) % MCV (79.4-94.8) fl MCH (25.6-32.2) pg MCHC (32.2-35.5) g/dl RDW Std Deviation (36.4-46.3) fL Plt Count (182-369) K/mm3 MPV (9.4-12.3) fl Neut % (Auto) (34.0-71.1) % Lymph % (Auto) (19.3-51.7) % [place] % (Auto) (4.7-12.5) % Eos % (Auto) (0.7-5.8) Baso % (Auto) (0.1-1.2) % Neut # (Auto) (1.56-6.13) K/mm3 Lymph # (Auto) (1.18-3.74) K/mm3 [place] # (Auto) (0.24-0.36) K/mm3 Eos # (Auto) (0.04-0.36) K/mm3 Baso # (Auto) (0.01-0.08) K/mm3 D-Dimer, Quantitative (0.19-0.50) mg/L Sodium (136-145) mEq/L Potassium (3.5-5.1) mEq/L Chloride (98-107) mEq/L Carbon Dioxide (21-32) mEq/L Anion Gap (5-15) BUN (7-18) mg/dL Creatinine (0.55-1.02) mg/dL Est Cr Clr Drug Dosing mL/min Estimated GFR (MDRD) (>60) mL/min BUN/Creatinine Ratio (14-18) Glucose (74-106) mg/dL Calcium (8.5-10.1) mg/dL Total Bilirubin (0.2-1.0) mg/dL AST (15-37) U/L ALT (14-59) U/L Alkaline Phosphatase (46-116) U/L Troponin I (0.00-0.056) ng/mL Total Protein (6.4-8.2) g/dl Albumin (3.4-5.0) g/dl Globulin gm/dL Albumin/Globulin Ratio (1-2) Urine Color Yellow (Yellow) Urine Appearance Slt cloudy H (Clear) Urine pH 5.5 (5.0-8.0) Ur Specific [place] > or = 1.030 (1.005-1.030) Urine Protein Trace H (Negative) Urine Glucose (UA) Negative (Negative) Urine Ketones Negative (Negative) Urine Occult Blood Negative (Negative) Urine Nitrite Negative (Negative) Urine Bilirubin Negative (Negative) Urine Urobilinogen 0.2 (0.2-1.0) Ur Leukocyte Esterase Negative (Negative) Urine RBC 0-5 (0-5) /hpf Urine WBC 0-5 (0-5) /hpf Ur Epithelial Cells 20-30 H (0-5) /hpf Urine Bacteria Moderate H (FEW) /hpf Urine Mucus Many H (FEW) /hpf Meds: Medications Discontinued Medications Generic Name Dose Route Start Last Admin Trade Name Freq PRN Reason Stop Dose Admin Albuterol/Ipratropium 3 ml 05/31/19 07:43 05/31/19 08:09 Duoneb 3.0-0.5 Mg/3 Ml NEB 05/31/19 07:44 3 ml ONETIME ONE Administration Influenza Virus Vaccine 1 each 05/31/19 07:37 Pharmacy To Dose - Influenza Vaccine IM 05/31/19 07:38 ONETIME ONE Influenza Virus Vaccine 60 mcg 05/31/19 07:45 05/31/19 08:19 Fluzone Quad [id number] Syringe IM 05/31/19 07:46 60 mcg .ONCE ONE Administration Ketorolac Tromethamine 60 mg 05/31/19 07:43 05/31/19 08:20 Toradol IM 05/31/19 07:44 60 mg ONETIME ONE Administration - Re-Assessments/Exams Free Text/Narrative Re-Assessment/Exam: 05/31/19 07:48 I have ordered labs, CXR, EKG, duoneb and a UA. 05/31/19 09:14 I gave her a shot of toradol and she feels better. Her EKG shows a NSR with no acute changes. Her CXR shows emphysema but no change from prior. Her Hgb is a little elevated at 16.9. Her D-dimer is negative. Her CMP looks good. Her troponin is negative. Her UA shows no UTI. I feel this is a muscle strain. I will get her on some flexeril and naprosyn for pain. Departure - Departure Time of Disposition: 09:20 Disposition: Home, Self-Care 01 Condition: Good Clinical Impression: Muscle strain of upper back - Discharge Information *PRESCRIPTION DRUG MONITORING PROGRAM REVIEWED*: No *COPY OF PRESCRIPTION DRUG MONITORING REPORT IN PATIENT SAMIR: No Prescriptions: Naproxen [Naprosyn] 500 mg PO Q12HR PRN #60 tab PRN Reason: Pain Cyclobenzaprine [Flexeril] 10 mg PO TID PRN #20 tab PRN Reason: Pain Referrals: Indy Davidson PA-C [Primary Care Provider] - 1 Week Forms: ED Department Discharge Additional Instructions: Take the naprosyn every 12 hours as needed for pain. If that does not help, try the flexeril every 8 hours for pain. Take your other medicine as prescribed. Please return if you are worse. - My Orders Last 24 Hours: My Active Orders 05/31/19 07:37 Influenza Vaccine Charge [RC] .DISCHARGE 05/31/19 07:42 Cardiac Monitoring [RC] . DIRECTED 05/31/19 07:43 EKG Documentation Completion [RC] STAT RT Aerosol Therapy [RC] ASDIRECTED Chest 2V [CR] Stat - Assessment/Plan Last 24 Hours: My Active Orders 05/31/19 07:37 Influenza Vaccine Charge [RC] .DISCHARGE 05/31/19 07:42 Cardiac Monitoring [RC] . DIRECTED 05/31/19 07:43 EKG Documentation Completion [RC] STAT RT Aerosol Therapy [RC] ASDIRECTED Chest 2V [CR] Stat
--- NOTE | 2019-06-01 13:42 | CR ---
Chest: Two views of the chest were obtained. Comparison: Prior chest x-ray of 03/24/19. Heart size and mediastinum are normal. Lungs are hyperinflated compatible with emphysematous change. No acute parenchymal change is appreciated. Bony structures show nothing acute. Impression: 1. Emphysematous change. 2. Nothing acute is otherwise appreciated on two-view chest x-ray. Diagnostic code #2
== END 2019-05-31 09:53 | disposition home or self-care (01) ==
LOC: JD.ED 07:21
DX: S29.012A Strain of muscle and tendon of back wall of thorax, initial encounter (principal); J44.9 Chronic obstructive pulmonary disease, unspecified; E78.00 Pure hypercholesterolemia, unspecified; K21.9 Gastro-esophageal reflux disease without esophagitis; F41.9 Anxiety disorder, unspecified; F21 Schizotypal disorder; F17.210 Nicotine dependence, cigarettes, uncomplicated; Z23 Encounter for immunization; Z99.81 Dependence on supplemental oxygen; Z79.899 Other long term (current) drug therapy; Z79.51 Long term (current) use of inhaled steroids; X50.0XXA Overexertion from strenuous movement or load, initial encounter; Y93.89 Activity, other specified
CPT/HCPCS: 36415; 71046; 80053; 81001; 84484; 85025; 85379; 90471; 90686; 93005; 94640; 96372; 99285; J1885; 93010; 99283; J7620-GY

== ENCOUNTER 2019-06-05 11:36 | Emergency (ER) | payer MEDICARE ==
[2019-06-05 11:51] VITALS: BP 144/112; PULSE 123
--- NOTE | 2019-06-05 11:52 | EDM.PDOC ---
ED HPI GENERAL MEDICAL PROBLEM - General Chief Complaint: Respiratory Problem Stated Complaint: FEVER/COUGH/SOB Time Seen by Provider: 06/05/19 11:52 - History of Present Illness INITIAL COMMENTS - FREE TEXT/NARRATIVE: 58-year-old female presents emergency room with shortness of breath fever and cough. Patient has underlying lung disease uses oxygen at home at 2 L on near continuous basis she uses nebulizers. However states that she needs a new mask and tubing. Over the last 24 hours she's had intermittent fevers and chills she' s been coughing up quite a bit of yellow sputum. She was seen here on Sunday with some chest wall discomfort after lifting injury. This was on the right chest. Patient has advanced COPD. Is not aware of any cardiac problems. She is on multiple medications for psychiatric issues. Patient was started on hydrocodone and Flexeril after the chest wall injury and is doing much better the pain is for the most part gone at this time. And this was rapidly improving before the cough and breathing difficulties worsened. Chest Pain Score (Numeric/FACES): 9 - Related Data Allergies Allergy/AdvReac Type Severity Reaction Status Date / Time No Known Allergies Allergy Verified 06/05/19 11:51 Home Meds: Home Meds Omeprazole 40 mg PO DAILY 02/22/16 [History] Paliperidone [Invega] 3 mg PO BEDTIME 02/22/16 [History] Sertraline [Zoloft] 100 mg PO BEDTIME 02/22/16 [History] atorvaSTATin [Lipitor] 20 mg PO DAILY 02/22/16 [History] traZODone HCl [Trazodone HCl] 150 mg PO BEDTIME 02/22/16 [History] Acetaminophen 1,000 mg PO DAILY PRN 11/27/17 [History] Albuterol [Proventil HFA] 1 - 2 puff INH ASDIRECTED PRN 11/27/17 [History] Albuterol/Ipratropium [DuoNeb 3.0-0.5 MG/3 ML] 3 ml .XX BID #60 neb 11/27/17 [Rx ] Benztropine Mesylate 2 mg PO BEDTIME 11/27/17 [History] Budesonide/Formoterol Fumarate [Symbicort 80-4.5 Mcg Inhaler] 1 puff INH BID 08/16 [History] Omeprazole 40 mg PO BEDTIME 11/27/17 [History] Albuterol/Ipratropium [DuoNeb 3.0-0.5 MG/3 ML] 3 ml .XX Q6H #60 neb 06/05/19 [Rx ] Levofloxacin [Levaquin] 750 mg PO Q24H #6 tablet 06/05/19 [Rx] Potassium Chloride [Klor-Con M20] 20 meq PO Q12H #6 tab.er 06/05/19 [Rx] Zolpidem [Ambien] 10 mg PO BEDTIME #7 tab 06/05/19 [Rx] predniSONE [Prednisone] 60 mg PO Q24H #15 tablet 06/05/19 [Rx] Past Medical History HEENT History: Reports: Impaired Vision Other HEENT History: wears eyeglasses Cardiovascular History: Reports: High Cholesterol, SOB on Exertion Other Cardiovascular History: states "I've always had palpitations." Respiratory History: Reports: COPD, SOB Gastrointestinal History: Reports: GERD Genitourinary History: Reports: Other (See Below) Other Genitourinary History: leakage of bladder 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 - Infectious Disease History Infectious Disease History: Reports: Chicken Pox - Past Surgical History HEENT Surgical History: Reports: Tonsillectomy Female Surgical History: Reports: Hysterectomy, Tubal Ligation Musculoskeletal Surgical History: Reports: Arthroscopic Knee Social & Family History - Family History Cardiac: Reports: None Respiratory: Reports: None GI: Reports: None : Reports: None OBGYN: Reports: None Musculoskeletal: Reports: None Psychiatric: Reports: Schizophrenia Other Psychiatric Family History: sisters Endocrine/Metabolic: Reports: Diabetes, type II Other Endocrine/Metabolic Family History: mother and brother Hematologic: Reports: None Dermatologic: Reports: None Oncologic: Reports: None - Caffeine Use Caffeine Use: Reports: Coffee - Living Situation & Occupation Living situation: Reports: Occupation: Unemployed ED ROS GENERAL - Review of Systems Review Of Systems: See Below Constitutional: Reports: Fever, Chills, Diaphoresis HEENT: Reports: No Symptoms Respiratory: Reports: Shortness of Breath, Cough, Sputum. Denies: Pleuritic Chest Pain, Hemoptysis Cardiovascular: Reports: No Symptoms Endocrine: Reports: No Symptoms GI/Abdominal: Reports: No Symptoms : Reports: No Symptoms Musculoskeletal: Reports: Other (Chest wall pain but this is getting better) Skin: Reports: No Symptoms Neurological: Reports: No Symptoms. Denies: Confusion, Dizziness Psychiatric: Reports: Other (She is doing pretty well on her current medications ) Hematologic/Lymphatic: Reports: No Symptoms Immunologic: Reports: No Symptoms ED EXAM, GENERAL - Physical Exam Exam: See Below Exam Limited By: No Limitations General Appearance: Alert, No Apparent Distress Eye Exam: Bilateral Eye: Normal Inspection Ears: Normal External Exam, Normal Canal, Hearing Grossly Normal, Normal TMs Nose: Normal Inspection, Normal Mucosa, No Blood Throat/Mouth: Normal Inspection, Normal Lips, Normal Gums, Normal Oropharynx, Normal Voice, No Airway Compromise, Other (She has dentures in place) Head: Atraumatic, Normocephalic Neck: Normal Inspection, Supple, Non-Tender, Full Range of Motion. No: Lymphadenopathy (L), Lymphadenopathy (R), Tender Midline, Thyromegaly Respiratory/Chest: No Respiratory Distress, Other (She has a frequent cough with deep breathing crackles in the right base decreased air movement) Cardiovascular: Regular Rate, Rhythm, No Edema, No Murmur GI/Abdominal: Normal Bowel Sounds, Soft, Non-Tender Back Exam: Other Extremities: Normal Inspection, No Pedal Edema Neurological: Alert, Oriented, Normal Cognition Course - Vital Signs Last Recorded V/S: Last Vital Signs Temp 37.3 C 06/05/19 11:42 Pulse 123 H 06/05/19 11:42 Resp 20 06/05/19 11:42 BP 144/112 H 06/05/19 11:42 Pulse Ox 92 L 06/05/19 13:08 - Orders/Labs/Meds Orders: Active Orders 24 hr Category Date Time Status EKG Documentation Completion [RC] STAT Care 06/05/19 12:01 Active RT Aerosol Therapy [RC] ASDIRECTED Care 06/05/19 11:59 Active RT Aerosol Therapy [RC] ASDIRECTED Care 06/05/19 13:08 Active RT Aerosol Therapy [RC] ASDIRECTED Care 06/05/19 13:23 Active CULTURE BLOOD [BC] Stat Lab 06/05/19 13:25 Received CULTURE BLOOD [BC] Stat Lab 06/05/19 13:35 Received CULTURE SPUTUM + SMEAR [RM] Stat Lab 06/05/19 13:00 Results Sodium Chloride 0.9% [Normal Saline] 100 ml Med 06/05/19 14:45 Active IV ASDIRECTED Sodium Chloride 0.9% [Saline Flush] Med 06/05/19 14:44 Active 10 ml FLUSH ONETIME PRN Blood Culture x2 Reflex Set [OM.PC] Stat Oth 06/05/19 13:05 Ordered Medication Orders Sodium Chloride (Normal Saline) 100 mls @ 75 mls/hr IV ASDIRECTED JOSÉ Last Admin: 06/05/19 15:21 Dose: 75 mls/hr Sodium Chloride (Saline Flush) 10 ml FLUSH ONETIME PRN PRN Reason: IV FLUSH Last Admin: 06/05/19 15:21 Dose: 10 ml Labs: Laboratory Tests 06/05/19 06/05/19 06/05/19 Range/Units 12:23 12:25 12:25 WBC 18.56 H (3.98-10.04) K/mm3 RBC 4.89 (3.98-5.22) M/mm3 Hgb 14.8 D (11.2-15.7) gm/dl Hct 46.0 H (34.1-44.9) % MCV 94.1 (79.4-94.8) fl MCH 30.3 (25.6-32.2) pg MCHC 32.2 (32.2-35.5) g/dl RDW Std Deviation 45.2 (36.4-46.3) fL Plt Count 267 (182-369) K/mm3 MPV 10.8 (9.4-12.3) fl Neutrophils % (Manual) 86 H (40-60) % Band Neutrophils % 0 (0-10) % Lymphocytes % (Manual) 9 L (20-40) % Atypical Lymphs % 0 % Monocytes % (Manual) 5 (2-10) % Eosinophils % (Manual) 0 L (0.7-5.8) % Basophils % (Manual) 0 L (0.1-1.2) Platelet Estimate Adequate RBC Morph Comment Normal D-Dimer, Quantitative 2.96 H (0.19-0.50) mg/L Puncture Site Rt radial ABG pH 7.35 (7.35-7.45) ABG pCO2 47.8 H (35.0-45.0) mmHg ABG pO2 73.0 L (80.0-100.0) mmHg ABG HCO3 25.7 (22.0-26.0) meq/L ABG O2 Saturation 94.7 L (96.0-97.0) % ABG Base Excess 0.0 (-2-2.0) Izaiah Test Positive A-a Gradient 96 mmHg O2 Delivery Device Lr Oxygen Flow Rate 3.0 FiO2 32.00 (21.00-100.00) % Sodium (136-145) mEq/L Potassium (3.5-5.1) mEq/L Chloride (98-107) mEq/L Carbon Dioxide (21-32) mEq/L Anion Gap (5-15) BUN (7-18) mg/dL Creatinine (0.55-1.02) mg/dL Est Cr Clr Drug Dosing mL/min Estimated GFR (MDRD) (>60) mL/min BUN/Creatinine Ratio (14-18) Glucose (74-106) mg/dL Lactic Acid (0.4-2.1) mmol/L Calcium (8.5-10.1) mg/dL Total Bilirubin (0.2-1.0) mg/dL AST (15-37) U/L ALT (14-59) U/L Alkaline Phosphatase (46-116) U/L Troponin I (0.00-0.056) ng/mL Total Protein (6.4-8.2) g/dl Albumin (3.4-5.0) g/dl Globulin gm/dL Albumin/Globulin Ratio (1-2) 06/05/19 06/05/19 Range/Units 12:25 13:35 WBC (3.98-10.04) K/mm3 RBC (3.98-5.22) M/mm3 Hgb (11.2-15.7) gm/dl Hct (34.1-44.9) % MCV (79.4-94.8) fl MCH (25.6-32.2) pg MCHC (32.2-35.5) g/dl RDW Std Deviation (36.4-46.3) fL Plt Count (182-369) K/mm3 MPV (9.4-12.3) fl Neutrophils % (Manual) (40-60) % Band Neutrophils % (0-10) % Lymphocytes % (Manual) (20-40) % Atypical Lymphs % % Monocytes % (Manual) (2-10) % Eosinophils % (Manual) (0.7-5.8) % Basophils % (Manual) (0.1-1.2) Platelet Estimate RBC Morph Comment D-Dimer, Quantitative (0.19-0.50) mg/L Puncture Site ABG pH (7.35-7.45) ABG pCO2 (35.0-45.0) mmHg ABG pO2 (80.0-100.0) mmHg ABG HCO3 (22.0-26.0) meq/L ABG O2 Saturation (96.0-97.0) % ABG Base Excess (-2-2.0) Izaiah Test A-a Gradient mmHg O2 Delivery Device Oxygen Flow Rate FiO2 (21.00-100.00) % Sodium 136 (136-145) mEq/L Potassium 3.7 (3.5-5.1) mEq/L Chloride 98 (98-107) mEq/L Carbon Dioxide 27 (21-32) mEq/L Anion Gap 14.7 (5-15) BUN 6 L (7-18) mg/dL Creatinine 0.7 (0.55-1.02) mg/dL Est Cr Clr Drug Dosing 87.29 mL/min Estimated GFR (MDRD) > 60 (>60) mL/min BUN/Creatinine Ratio 8.6 L (14-18) Glucose 153 H (74-106) mg/dL Lactic Acid 1.7 (0.4-2.1) mmol/L Calcium 9.1 (8.5-10.1) mg/dL Total Bilirubin 1.1 H (0.2-1.0) mg/dL AST 22 (15-37) U/L ALT 36 (14-59) U/L Alkaline Phosphatase 112 (46-116) U/L Troponin I < 0.017 (0.00-0.056) ng/mL Total Protein 7.3 (6.4-8.2) g/dl Albumin 3.0 L (3.4-5.0) g/dl Globulin 4.3 gm/dL Albumin/Globulin Ratio 0.7 L (1-2) Meds: Medications Generic Name Dose Route Start Last Admin Trade Name Fredi PRN Reason Stop Dose Admin Sodium Chloride 100 mls @ 75 mls/hr 06/05/19 14:45 06/05/19 15:21 Normal Saline IV 75 mls/hr ASDIRECTED JOSÉ Administration Sodium Chloride 10 ml 06/05/19 14:44 06/05/19 15:21 Saline Flush FLUSH 10 ml ONETIME PRN Administration IV FLUSH Discontinued Medications Generic Name Dose Route Start Last Admin Trade Name Fredi PRN Reason Stop Dose Admin Acetaminophen 975 mg 06/05/19 12:52 06/05/19 13:06 Tylenol PO 06/05/19 12:53 975 mg NOW ONE Administration Albuterol/Ipratropium 3 ml 06/05/19 11:59 06/05/19 12:17 Duoneb 3.0-0.5 Mg/3 Ml NEB 06/05/19 12:00 3 ml ONETIME ONE Administration Albuterol/Ipratropium 3 ml 06/05/19 13:07 06/05/19 14:29 Duoneb 3.0-0.5 Mg/3 Ml NEB 06/05/19 13:08 3 ml ONETIME ONE Administration Albuterol/Ipratropium 3 ml 06/05/19 13:23 06/05/19 15:44 Duoneb 3.0-0.5 Mg/3 Ml NEB 06/05/19 13:24 Not Given ONETIME ONE Sodium Chloride 500 mls @ 999 mls/hr 06/05/19 13:21 06/05/19 14:18 Normal Saline IV 06/05/19 13:51 999 mls/hr .BOLUS ONE Administration Iopamidol 100 ml 06/05/19 14:44 06/05/19 15:21 Isovue-370 (76%) IVPUSH 06/05/19 14:45 100 ml ONETIME ONE Administration Levofloxacin 750 mg 06/05/19 16:51 06/05/19 17:37 Levaquin PO 06/05/19 16:52 750 mg ONETIME ONE Administration Magnesium Oxide 800 mg 06/05/19 16:56 06/05/19 17:36 Magnesium Oxide PO 06/05/19 16:57 800 mg ONETIME ONE Administration Methylprednisolone Sodium Succinate 125 mg 06/05/19 11:59 06/05/19 12:30 Solu-Medrol IVPUSH 06/05/19 12:00 125 mg ONETIME ONE Administration - Re-Assessments/Exams Free Text/Narrative Re-Assessment/Exam: 06/05/19 17:15 chest x-ray was nondiagnostic of advanced lung disease. Laboratory evaluation shows a white count a little over 18,000 remaining laboratory values are essentially unremarkable, other than her d-dimer that was elevated at over 2.6. CTA was done which is consistent with no pulmonary embolism however she has some diffuse lung disease she's got parenchymal density within the right lower lung that with her white count is probably suggestive of infectious process. Clinically the patient is coughing up yellow mustard-like sputum and gives a history of having fevers clinically she very easily could have pneumonia. Influenza screen was negative she had her influenza shot on Sunday. Discussed inpatient treatment with the patient's underlying lung disease and the patient would really like to try outpatient treatment after several discussions. I did mention my concern about this with her underlying lung disease and other comorbidities reviewed the patient is fairly insistent on going home. We would titrate her oxygen she normally uses 2 L now she's using 2 and half to 2.5 L she can do this at home we can add DuoNeb treatments at home we gave her need a new and the mask. And she is to be started on Levaquin. The Levaquin can have increased QT prolongation with her trazodone 150 mg we'll optimize her magnesium and potassium as an outpatient to minimize this risk, and have her decrease her trazodone to a half tablet at bedtime. We will have her use oxygen 2-1/2 L from her concentrator at home 06/05/19 17:34 06/05/19 17:47 After further discussion will have the patient to stop her trazodone she uses this for sleep and will give her a week's worth of Ambien Departure - Departure Time of Disposition: 17:19 Disposition: DC/Tfer to Hospice - Home 49 Clinical Impression: Pneumonia, COPD (chronic obstructive pulmonary disease) - Discharge Information Prescriptions: Albuterol/Ipratropium [DuoNeb 3.0-0.5 MG/3 ML] 3 ml .XX Q6H #60 neb Levofloxacin [Levaquin] 750 mg PO Q24H #6 tablet Potassium Chloride [Klor-Con M20] 20 meq PO Q12H #6 tab.er predniSONE [Prednisone] 60 mg PO Q24H #15 tablet Zolpidem [Ambien] 10 mg PO BEDTIME #7 tab Instructions: Chronic Obstructive Pulmonary Disease, [id number], Community- Acquired Pneumonia, Adult, [id number] Referrals: Indy Davidson PA-C [Primary Care Provider] - Forms: ED Department Discharge Additional Instructions: Return to the emergency room with any questions problems or worsening symptoms. Return in 24 hours if not improving. Take the medications as directed in addition to the prescription medications flower buncher or picker some magnesium oxide, this is [id number], get the 400 mg and take 400 mg daily Take the prednisone this is best taken first thing in the morning. Take the antibiotics one nightly until all gone. Use your nebulizer 4 times a day with a duo nebs. Stop your trazodone and use the Ambien in its place. Resume normal dosing after you're done taking the Levaquin - My Orders Last 24 Hours: My Active Orders 06/05/19 11:59 RT Aerosol Therapy [RC] ASDIRECTED 06/05/19 12:01 EKG Documentation Completion [RC] STAT 06/05/19 13:00 CULTURE SPUTUM + SMEAR [RM] Stat 06/05/19 13:05 Blood Culture x2 Reflex Set [OM.PC] Stat 06/05/19 13:08 RT Aerosol Therapy [RC] ASDIRECTED 06/05/19 13:23 RT Aerosol Therapy [RC] ASDIRECTED 06/05/19 13:25 CULTURE BLOOD [BC] Stat 06/05/19 13:35 CULTURE BLOOD [BC] Stat 06/05/19 14:44 Sodium Chloride 0.9% [Saline Flush] 10 ml FLUSH ONETIME PRN 06/05/19 14:45 Sodium Chloride 0.9% [Normal Saline] 100 ml IV ASDIRECTED - Assessment/Plan Last 24 Hours: My Active Orders 06/05/19 11:59 RT Aerosol Therapy [RC] ASDIRECTED 06/05/19 12:01 EKG Documentation Completion [RC] STAT 06/05/19 13:00 CULTURE SPUTUM + SMEAR [RM] Stat 06/05/19 13:05 Blood Culture x2 Reflex Set [OM.PC] Stat 06/05/19 13:08 RT Aerosol Therapy [RC] ASDIRECTED 06/05/19 13:23 RT Aerosol Therapy [RC] ASDIRECTED 06/05/19 13:25 CULTURE BLOOD [BC] Stat 06/05/19 13:35 CULTURE BLOOD [BC] Stat 06/05/19 14:44 Sodium Chloride 0.9% [Saline Flush] 10 ml FLUSH ONETIME PRN 06/05/19 14:45 Sodium Chloride 0.9% [Normal Saline] 100 ml IV ASDIRECTED
[2019-06-05] MEDS ORDERED: methylPREDNISolone Sodium Succinate 125 MG/2 ML SDV IVPUSH ONE (11:59)
[2019-06-05] MEDS ORDERED: Albuterol/Ipratropium 3.0-0.5 MG/3 ML Neb Soln NEB ONE ×3 (11:59→13:23)
[2019-06-05] MEDS ORDERED: Acetaminophen 325 MG Tab PO ONE (12:52)
--- NOTE | 2019-06-05 12:52 | CR ---
Chest: Portable view of the chest was obtained. Comparison: Prior chest x-ray of 05/31/19. Heart size and mediastinum are normal. Lung markings are mildly increased which appear chronic. No acute parenchymal change is seen. Lungs are hyperinflated compatible with emphysematous change. Bony structures are grossly intact. Impression: 1. Emphysematous change and chronic increased lung markings. 2. Nothing acute is definitely appreciated. Diagnostic code #2
[2019-06-05] MEDS ORDERED: Sodium Chloride 0.9% 500 ML IV ONE (13:21)
[2019-06-05] MEDS ORDERED: Sodium Chloride 0.9% 10 ML Syringe FLUSH PRN (14:44)
[2019-06-05] MEDS ORDERED: Iopamidol 755 Mg/ML 100 ML Bottle IVPUSH ONE (14:44)
[2019-06-05] MEDS ORDERED: Sodium Chloride 0.9% 100 ML IV SCH (14:45)
--- NOTE | 2019-06-05 15:43 | CT ---
CT chest Technique: Multiple axial sections were obtained from above the lung apices inferiorly through the lung bases. Intravenous contrast was utilized. Study performed as a pulmonary angiogram protocol. Comparison: Previous CT chest study Findings: Pulmonary arteries are moderately well-opacified. No filling defects are seen to indicate pulmonary embolism. Mild coronary artery calcification is seen. Multiple small lymph nodes are seen within the mediastinum and hilar regions. No axillary adenopathy is seen. Diffuse emphysematous change is seen. Focal parenchymal density is noted within the right lung base. Scarring is noted within both lung apices. Bone window settings were reviewed which show nothing acute. Impression: 1. No findings of pulmonary embolism. 2. Slight parenchymal density within the right lower lung. Please correlate if patient has any infectious symptoms for findings to represent pneumonia. 3. Diffuse emphysematous change. 4. Slightly prominent lymph nodes within the mediastinum and hilar regions. These have increased in size and number from prior CT exam. Uncertain if findings represent change from previous inflammatory process or represents early lymphoproliferative disease. Recommend follow-up contrast enhanced CT study between 6 and 9 months. Diagnostic code #9
[2019-06-05] MEDS ORDERED: Levofloxacin 750 MG Tab PO ONE (16:51)
[2019-06-05] MEDS ORDERED: Magnesium Oxide 400 MG Tab PO ONE (16:56)
== END 2019-06-05 18:17 | disposition hospice, home (50) ==
LOC: JD.ED 11:36
DX: J18.9 Pneumonia, unspecified organism (principal); J44.9 Chronic obstructive pulmonary disease, unspecified; E78.5 Hyperlipidemia, unspecified; F41.9 Anxiety disorder, unspecified; K21.9 Gastro-esophageal reflux disease without esophagitis; Z79.51 Long term (current) use of inhaled steroids; Z79.899 Other long term (current) drug therapy
CPT/HCPCS: 36415; 36600; 71045; 71275; 80053; 82803; 83605; 84484; 85007; 85027; 85379; 87040; 87070; 87077; 87184; 87205; 87804; 93005; 94640; 96361; 96374; 99285; A9270; J2930; J7030; J7040; Q9967; J7620-GY

== ENCOUNTER 2019-09-08 16:44 | Emergency (ER) | payer MEDICAID, MEDICARE ==
[2019-09-08 17:33] VITALS: BP 132/80; PULSE 96
--- NOTE | 2019-09-08 18:43 | EDM.PDOCBH ---
ED HPI GENERAL MEDICAL PROBLEM - General Chief Complaint: Behavioral/Psych Stated Complaint: SKIN COMPLAINT/UNABLE TO EAT NOR SLEEP Time Seen by Provider: 09/08/19 18:21 Source of Information: Reports: Patient History Limitations: Reports: No Limitations - History of Present Illness INITIAL COMMENTS - FREE TEXT/NARRATIVE: The patient presents with some concerns. She is out of her psychiatric meds and she has schizoaffective disorder. Her doctor is Dr Pace. She has been hearing voices and not getting much sleep. She has no chest pain, shortness of breath, fever, chills, or cough. Onset: Gradual Duration: Day(s): Severity: Moderate Improves with: Reports: None Worsens with: Reports: None Associated Symptoms: Denies: Chest Pain, Cough, Fever/Chills, Headaches, Nausea/ Vomiting, Shortness of Breath - Related Data Allergies Allergy/AdvReac Type Severity Reaction Status Date / Time No Known Allergies Allergy Verified 09/08/19 17:33 Home Meds: Home Meds Omeprazole 40 mg PO DAILY 02/22/16 [History] Paliperidone [Invega] 3 mg PO BEDTIME 02/22/16 [History] Sertraline [Zoloft] 100 mg PO BEDTIME 02/22/16 [History] atorvaSTATin [Lipitor] 20 mg PO DAILY 02/22/16 [History] traZODone HCl [Trazodone HCl] 150 mg PO BEDTIME 02/22/16 [History] Acetaminophen 1,000 mg PO DAILY PRN 11/27/17 [History] Albuterol [Proventil HFA] 1 - 2 puff INH ASDIRECTED PRN 11/27/17 [History] Albuterol/Ipratropium [DuoNeb 3.0-0.5 MG/3 ML] 3 ml .XX BID #60 neb 11/27/17 [Rx ] Benztropine Mesylate 2 mg PO BEDTIME 11/27/17 [History] Budesonide/Formoterol Fumarate [Symbicort 80-4.5 Mcg Inhaler] 1 puff INH BID 08/16 [History] Omeprazole 40 mg PO BEDTIME 11/27/17 [History] Albuterol/Ipratropium [DuoNeb 3.0-0.5 MG/3 ML] 3 ml .XX Q6H #60 neb 06/05/19 [Rx ] Levofloxacin [Levaquin] 750 mg PO Q24H #6 tablet 06/05/19 [Rx] Potassium Chloride [Klor-Con M20] 20 meq PO Q12H #6 tab.er 06/05/19 [Rx] Zolpidem [Ambien] 10 mg PO BEDTIME #7 tab 06/05/19 [Rx] predniSONE [Prednisone] 60 mg PO Q24H #15 tablet 06/05/19 [Rx] LORazepam [Ativan] 1 mg PO BEDTIME PRN #7 tablet 09/08/19 [Rx] Past Medical History HEENT History: Reports: Impaired Vision Other HEENT History: wears eyeglasses Cardiovascular History: Reports: High Cholesterol, SOB on Exertion Other Cardiovascular History: states "I've always had palpitations." Respiratory History: Reports: COPD, SOB Other Respiratory History: Emphysema Gastrointestinal History: Reports: GERD Genitourinary History: Reports: Other (See Below) Other Genitourinary History: leakage of bladder 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 Hematologic History: Reports: None Immunologic History: Reports: None Oncologic (Cancer) History: Reports: None Dermatologic History: Reports: None - Infectious Disease History Infectious Disease History: Reports: Chicken Pox - Past Surgical History HEENT Surgical History: Reports: Tonsillectomy Female Surgical History: Reports: Hysterectomy, Tubal Ligation Musculoskeletal Surgical History: Reports: Arthroscopic Knee Social & Family History - Family History Cardiac: Reports: None Respiratory: Reports: None GI: Reports: None : Reports: None OBGYN: Reports: None Musculoskeletal: Reports: None Psychiatric: Reports: Schizophrenia Other Psychiatric Family History: sisters Endocrine/Metabolic: Reports: Diabetes, type II Other Endocrine/Metabolic Family History: mother and brother Hematologic: Reports: None Dermatologic: Reports: None Oncologic: Reports: None - Tobacco Use Smoking Status *Q: Current Every Day Smoker Years of Tobacco use: 35 Packs/Tins Daily: 1 - Caffeine Use Caffeine Use: Reports: Soda - Recreational Drug Use Recreational Drug Use: No - Living Situation & Occupation Living situation: Reports: Occupation: Unemployed ED ROS GENERAL - Review of Systems Review Of Systems: See Below Constitutional: Reports: No Symptoms HEENT: Reports: No Symptoms Respiratory: Reports: No Symptoms Cardiovascular: Reports: No Symptoms Endocrine: Reports: No Symptoms GI/Abdominal: Reports: No Symptoms : Reports: No Symptoms Musculoskeletal: Reports: No Symptoms Skin: Reports: No Symptoms ED EXAM, BEHAVIORAL HEALTH - Physical Exam Exam: See Below Exam Limited By: No Limitations General Appearance: Alert, No Apparent Distress Ears: Normal External Exam Nose: Normal Inspection Head: Atraumatic, Normocephalic Neck: Normal Inspection Respiratory/Chest: No Respiratory Distress, Lungs Clear, Normal Breath Sounds Cardiovascular: Regular Rate, Rhythm, No Edema, No Murmur GI/Abdominal: Soft, Non-Tender, No Organomegaly, No Mass Back Exam: Normal Inspection Extremities: Normal Inspection Neurological: Alert, No Motor/Sensory Deficits, Oriented x 3 COURSE, BEHAVIORAL HEALTH COMP - Course Vital Signs: Last Vital Signs Temp 97.9 F 09/08/19 17:21 Pulse 96 09/08/19 17:21 Resp 16 09/08/19 17:21 BP 132/80 09/08/19 17:21 Pulse Ox 90 L 09/08/19 17:21 Departure - Departure Time of Disposition: 18:35 Disposition: Home, Self-Care 01 Condition: Good Clinical Impression: Schizophrenia Qualifiers: Schizophrenia type: other Qualified Code(s): F20.89 - Other schizophrenia; F20.8 - Other schizophrenia - Discharge Information *PRESCRIPTION DRUG MONITORING PROGRAM REVIEWED*: No *COPY OF PRESCRIPTION DRUG MONITORING REPORT IN PATIENT SAMIR: No Prescriptions: LORazepam [Ativan] 1 mg PO BEDTIME PRN #7 tablet PRN Reason: Sleep Referrals: Gabriele Garcia MD [Physician] - 1 Week Additional Instructions: Take your medication as prescribed. Take the ativan at night to help you sleep. Please return if you are worse. Follow up with Dr Pace or Dr Garcia. Sepsis Event Note - Evaluation Sepsis Screening Result: No Definite Risk - Focused Exam Vital Signs: Vital Signs Temp Pulse Resp BP Pulse Ox 09/08/19 17:21 97.9 F 96 16 132/80 90 L Date Exam was Performed: 09/08/19 Time Exam was Performed: 18:31
== END 2019-09-08 18:58 | disposition home or self-care (01) ==
LOC: JD.ED 16:44
DX: F20.89 Other schizophrenia (principal); F17.210 Nicotine dependence, cigarettes, uncomplicated; E78.00 Pure hypercholesterolemia, unspecified; K21.9 Gastro-esophageal reflux disease without esophagitis; J44.9 Chronic obstructive pulmonary disease, unspecified; F31.9 Bipolar disorder, unspecified; F41.9 Anxiety disorder, unspecified; Z79.899 Other long term (current) drug therapy
CPT/HCPCS: 99283; 99284

== ENCOUNTER 2020-01-27 14:13 | Emergency (ER) | payer MEDICARE ==
[2020-01-27] MEDS ORDERED: Sodium Chloride 0.9% 10 ML Syringe FLUSH PRN ×2 (14:36→16:37)
[2020-01-27] MEDS ORDERED: methylPREDNISolone Sodium Succinate 125 MG/2 ML SDV IVPUSH ONE (14:37)
[2020-01-27] MEDS ORDERED: Albuterol/Ipratropium 3.0-0.5 MG/3 ML Neb Soln NEB ONE (14:37)
[2020-01-27 14:42] VITALS: BP 132/63; PULSE 88
--- NOTE | 2020-01-27 15:53 | EDM.PDOC ---
ED HPI GENERAL MEDICAL PROBLEM - General Chief Complaint: Respiratory Problem Stated Complaint: SOB SENT BY [facility] Time Seen by Provider: 01/27/20 14:36 Source of Information: Reports: Patient, Family History Limitations: Reports: No Limitations - History of Present Illness INITIAL COMMENTS - FREE TEXT/NARRATIVE: The patient presents with a cough and shortness of breath. She has a history of COPD and she has been more short of breath over the past few days. She is on home oxygen and she has been needing more oxygen. She went to [facility] and they sent her over here for assessment. They did do a test for COVID. She has not been out of town. She has no fever or chills. She has no chest pain. She has no abdominal pain, nausea or vomiting. She has no swelling or pain in her legs. Onset: Gradual Duration: Day(s): Severity: Moderate Improves with: Reports: None Worsens with: Reports: None Associated Symptoms: Reports: Cough, Shortness of Breath. Denies: Chest Pain, Fever/Chills, Headaches, Nausea/Vomiting - Related Data Allergies Allergy/AdvReac Type Severity Reaction Status Date / Time No Known Allergies Allergy Verified 09/08/19 17:33 Home Meds: Home Meds Omeprazole 40 mg PO DAILY 02/22/16 [History] Paliperidone [Invega] 3 mg PO BEDTIME 02/22/16 [History] Sertraline [Zoloft] 100 mg PO BEDTIME 02/22/16 [History] atorvaSTATin [Lipitor] 20 mg PO DAILY 02/22/16 [History] traZODone HCl [Trazodone HCl] 150 mg PO BEDTIME 02/22/16 [History] Acetaminophen 1,000 mg PO DAILY PRN 11/27/17 [History] Albuterol [Proventil HFA] 1 - 2 puff INH ASDIRECTED PRN 11/27/17 [History] Albuterol/Ipratropium [DuoNeb 3.0-0.5 MG/3 ML] 3 ml .XX BID #60 neb 11/27/17 [Rx] Benztropine Mesylate 2 mg PO BEDTIME 11/27/17 [History] Budesonide/Formoterol Fumarate [Symbicort 80-4.5 Mcg Inhaler] 1 puff INH BID 11/27/17 [History] Omeprazole 40 mg PO BEDTIME 11/27/17 [History] Albuterol/Ipratropium [DuoNeb 3.0-0.5 MG/3 ML] 3 ml .XX Q6H #60 neb 06/05/19 [Rx] Potassium Chloride [Klor-Con M20] 20 meq PO Q12H #6 tab.er 06/05/19 [Rx] Zolpidem [Ambien] 10 mg PO BEDTIME #7 tab 06/05/19 [Rx] levoFLOXacin [Levaquin] 750 mg PO Q24H #6 tablet 06/05/19 [Rx] predniSONE [Prednisone] 60 mg PO Q24H #15 tablet 06/05/19 [Rx] LORazepam [Ativan] 1 mg PO BEDTIME PRN #7 tablet 09/08/19 [Rx] Azithromycin [Zithromax] 250 mg PO DAILY #6 tab 01/27/20 [Rx] predniSONE [Prednisone] 40 mg PO DAILY #10 tablet 01/27/20 [Rx] Past Medical History HEENT History: Reports: Impaired Vision Other HEENT History: wears eyeglasses Cardiovascular History: Reports: High Cholesterol, SOB on Exertion Other Cardiovascular History: states "I've always had palpitations." Respiratory History: Reports: COPD, SOB Other Respiratory History: Emphysema Gastrointestinal History: Reports: GERD Genitourinary History: Reports: Other (See Below) Other Genitourinary History: leakage of bladder 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 Hematologic History: Reports: None Immunologic History: Reports: None Oncologic (Cancer) History: Reports: None Dermatologic History: Reports: None - Infectious Disease History Infectious Disease History: Reports: Chicken Pox - Past Surgical History HEENT Surgical History: Reports: Tonsillectomy Female Surgical History: Reports: Hysterectomy, Tubal Ligation Musculoskeletal Surgical History: Reports: Arthroscopic Knee Social & Family History - Family History Family Medical History: Noncontributory Cardiac: Reports: None Respiratory: Reports: None GI: Reports: None : Reports: None OBGYN: Reports: None Musculoskeletal: Reports: None Psychiatric: Reports: Schizophrenia Other Psychiatric Family History: sisters Endocrine/Metabolic: Reports: Diabetes, type II Other Endocrine/Metabolic Family History: mother and brother Hematologic: Reports: None Dermatologic: Reports: None Oncologic: Reports: None - Tobacco Use Smoking Status *Q: Current Every Day Smoker Years of Tobacco use: 45 Packs/Tins Daily: 2 - Caffeine Use Caffeine Use: Reports: Soda - Living Situation & Occupation Living situation: Reports: Occupation: Unemployed ED ROS GENERAL - Review of Systems Review Of Systems: See Below Constitutional: Reports: No Symptoms HEENT: Reports: No Symptoms Respiratory: Reports: Shortness of Breath, Cough Cardiovascular: Reports: No Symptoms Endocrine: Reports: No Symptoms GI/Abdominal: Reports: No Symptoms : Reports: No Symptoms Musculoskeletal: Reports: No Symptoms ED EXAM, GENERAL - Physical Exam Exam: See Below Exam Limited By: No Limitations General Appearance: Alert, No Apparent Distress Ears: Normal External Exam Nose: Normal Inspection Head: Atraumatic, Normocephalic Neck: Normal Inspection Respiratory/Chest: No Respiratory Distress, Decreased Breath Sounds, Wheezing Cardiovascular: Regular Rate, Rhythm, No Edema, No Murmur GI/Abdominal: Soft, Non-Tender, No Organomegaly, No Mass Back Exam: Normal Inspection Extremities: Normal Inspection EKG INTERPRETATION EKG Date: 01/27/20 Time: 15:12 Rhythm: NSR Rate (Beats/Min): 85 [place]: Normal P-Wave: Present QRS: Normal ST-T: Normal QT: Normal Course - Vital Signs Last Recorded V/S: Last Vital Signs Temp 99.2 F 01/27/20 14:36 Pulse 88 01/27/20 14:36 Resp 18 01/27/20 14:36 BP 132/63 01/27/20 14:36 Pulse Ox 94 L 01/27/20 14:37 - Orders/Labs/Meds Orders: Active Orders 24 hr Category Date Time Status Cardiac Monitoring [RC] . DIRECTED Care 01/27/20 14:36 Active EKG Documentation Completion [RC] STAT Care 01/27/20 14:36 Active Oxygen Therapy [RC] PRN Care 01/27/20 14:36 Active Peripheral IV Care [RC] . DIRECTED Care 01/27/20 14:37 Active RT Aerosol Therapy [RC] ASDIRECTED Care 01/27/20 14:37 Active CORONAVIRUS COVID-19 PCR PHL Stat Lab 01/27/20 14:37 Ordered CULTURE BLOOD [BC] Stat Lab 01/27/20 15:38 Received CULTURE BLOOD [BC] Stat Lab 01/27/20 15:56 Received Sodium Chloride 0.9% [Normal Saline] 45 ml Med 01/27/20 16:45 Active IV ASDIRECTED Sodium Chloride 0.9% [Saline Flush] Med 01/27/20 14:36 Active 10 ml FLUSH ASDIRECTED PRN Sodium Chloride 0.9% [Saline Flush] Med 01/27/20 16:37 Active 10 ml FLUSH ONETIME PRN Blood Culture x2 Reflex Set [OM.PC] Stat Oth 01/27/20 14:38 Ordered Peripheral IV Insertion Adult [OM.PC] Stat Oth 01/27/20 14:36 Ordered Medication Orders Sodium Chloride (Normal Saline) 45 mls @ 40 mls/hr IV ASDIRECTED JOSÉ Last Admin: 01/27/20 16:49 Dose: 40 mls/hr Documented by: AKUA Sodium Chloride (Saline Flush) 10 ml FLUSH ASDIRECTED PRN PRN Reason: Keep Vein Open Last Admin: 01/27/20 15:02 Dose: 10 ml Documented by: KEESHA Sodium Chloride (Saline Flush) 10 ml FLUSH ONETIME PRN PRN Reason: Keep Vein Open Last Admin: 01/27/20 16:49 Dose: 10 ml Documented by: AKUA Labs: Laboratory Tests 01/27/20 01/27/20 01/27/20 Range/Units 14:45 14:45 15:56 WBC 11.42 H (3.98-10.04) K/mm3 RBC 5.18 (3.98-5.22) M/mm3 Hgb 15.6 (11.2-15.7) gm/dl Hct 48.3 H (34.1-44.9) % MCV 93.2 (79.4-94.8) fl MCH 30.1 (25.6-32.2) pg MCHC 32.3 (32.2-35.5) g/dl RDW Std Deviation 45.9 (36.4-46.3) fL Plt Count 260 (182-369) K/mm3 MPV 10.9 (9.4-12.3) fl Neut % (Auto) 76.3 H (34.0-71.1) % Lymph % (Auto) 13.4 L (19.3-51.7) % Marshall % (Auto) 9.1 (4.7-12.5) % Eos % (Auto) 0.6 L (0.7-5.8) Baso % (Auto) 0.3 (0.1-1.2) % Neut # (Auto) 8.72 H (1.56-6.13) K/mm3 Lymph # (Auto) 1.53 (1.18-3.74) K/mm3 Marshall # (Auto) 1.04 H (0.24-0.36) K/mm3 Eos # (Auto) 0.07 (0.04-0.36) K/mm3 Baso # (Auto) 0.03 (0.01-0.08) K/mm3 Sodium 137 (136-145) mEq/L Potassium 3.4 L (3.5-5.1) mEq/L Chloride 98 (98-107) mEq/L Carbon Dioxide 32 (21-32) mEq/L Anion Gap 10.4 (5-15) BUN 5 L (7-18) mg/dL Creatinine 0.6 (0.55-1.02) mg/dL Est Cr Clr Drug Dosing 100.58 mL/min Estimated GFR (MDRD) > 60 (>60) mL/min BUN/Creatinine Ratio 8.3 L (14-18) Glucose 125 H (74-106) mg/dL Lactic Acid 1.2 (0.4-2.0) mmol/L Calcium 9.2 (8.5-10.1) mg/dL Total Bilirubin 0.8 (0.2-1.0) mg/dL AST 42 H (15-37) U/L ALT 41 (14-59) U/L Alkaline Phosphatase 111 (46-116) U/L Troponin I < 0.017 (0.00-0.056) ng/mL Total Protein 7.8 (6.4-8.2) g/dl Albumin 3.1 L (3.4-5.0) g/dl Globulin 4.7 gm/dL Albumin/Globulin Ratio 0.7 L (1-2) Meds: Medications Generic Name Dose Route Start Last Admin Trade Name Freq PRN Reason Stop Dose Admin Sodium Chloride 45 mls @ 40 mls/hr 01/27/20 16:45 01/27/20 16:49 Normal Saline IV 40 mls/hr ASDIRECTED JOSÉ Administration Sodium Chloride 10 ml 01/27/20 14:36 01/27/20 15:02 Saline Flush FLUSH 10 ml ASDIRECTED PRN Administration Keep Vein Open Sodium Chloride 10 ml 01/27/20 16:37 01/27/20 16:49 Saline Flush FLUSH 10 ml ONETIME PRN Administration Keep Vein Open Discontinued Medications Generic Name Dose Route Start Last Admin Trade Name Fredi PRN Reason Stop Dose Admin Albuterol/Ipratropium 3 ml 01/27/20 14:37 01/27/20 15:07 Duoneb 3.0-0.5 Mg/3 Ml NEB 01/27/20 14:38 3 ml ONETIME ONE Administration Iopamidol 100 ml 01/27/20 16:37 01/27/20 16:49 Isovue-370 (76%) IVPUSH 01/27/20 16:38 100 ml ONETIME ONE Administration Methylprednisolone Sodium Succinate 125 mg 01/27/20 14:37 01/27/20 15:00 Solu-Medrol IVPUSH 01/27/20 14:38 125 mg ONETIME ONE Administration - Re-Assessments/Exams Free Text/Narrative Re-Assessment/Exam: 01/27/20 15:53 I ordered oxygen, IV saline lock, solu-medrol 125mg IV, duoneb, chest angio and labs. 01/27/20 17:25 Her EKG shows a NSR with no acute changes. Her WBC was elevated at 11.42. Her K was low at 3.4. Her lactic acid was normal. Her AST was slightly elevated at 42. Her troponin is negative. She feels better. Her CT shows severe emphysematous change. No findings of pulmonary embolism. Nothing acute is otherwise seen on CT study of the chest. I will get her on some prednisone and zithromax. The clinic did the COVID test on her. Departure - Departure Time of Disposition: 17:30 Disposition: Home, Self-Care 01 Condition: Good Clinical Impression: COPD exacerbation - Discharge Information *PRESCRIPTION DRUG MONITORING PROGRAM REVIEWED*: Not Applicable *COPY OF PRESCRIPTION DRUG MONITORING REPORT IN PATIENT SAMIR: Not Applicable Prescriptions: predniSONE [Prednisone] 40 mg PO DAILY #10 tablet Azithromycin [Zithromax] 250 mg PO DAILY #6 tab Referrals: Indy Davidson PA-C [Primary Care Provider] - 1 Week Forms: ED Department Discharge Additional Instructions: Take your medication as prescribed. Take the prednisone daily for 5 days. Take the zithromax 2 pills on day 1 and 1 pill on days 2 through 5. Follow up with your doctor within a week. Please return if you are worse. Sepsis Event Note (ED) - Evaluation Sepsis Screening Result: No Definite Risk - Focused Exam Vital Signs: Vital Signs Temp Pulse Resp BP Pulse Ox Pulse Ox 01/27/20 14:37 94 L 01/27/20 14:36 99.2 F 88 18 132/63 97 - My Orders Last 24 Hours: My Active Orders 01/27/20 14:36 Cardiac Monitoring [RC] . DIRECTED EKG Documentation Completion [RC] STAT Oxygen Therapy [RC] PRN Sodium Chloride 0.9% [Saline Flush] 10 ml FLUSH ASDIRECTED PRN Peripheral IV Insertion Adult [OM.PC] Stat 01/27/20 14:37 Peripheral IV Care [RC] . DIRECTED RT Aerosol Therapy [RC] ASDIRECTED CORONAVIRUS COVID-19 PCR PHL Stat 01/27/20 14:38 Blood Culture x2 Reflex Set [OM.PC] Stat 01/27/20 15:38 CULTURE BLOOD [BC] Stat 01/27/20 15:56 CULTURE BLOOD [BC] Stat 01/27/20 16:37 Sodium Chloride 0.9% [Saline Flush] 10 ml FLUSH ONETIME PRN 01/27/20 16:45 Sodium Chloride 0.9% [Normal Saline] 45 ml IV ASDIRECTED - Assessment/Plan Last 24 Hours: My Active Orders 01/27/20 14:36 Cardiac Monitoring [RC] . DIRECTED EKG Documentation Completion [RC] STAT Oxygen Therapy [RC] PRN Sodium Chloride 0.9% [Saline Flush] 10 ml FLUSH ASDIRECTED PRN Peripheral IV Insertion Adult [OM.PC] Stat 01/27/20 14:37 Peripheral IV Care [RC] . DIRECTED RT Aerosol Therapy [RC] ASDIRECTED CORONAVIRUS COVID-19 PCR PHL Stat 01/27/20 14:38 Blood Culture x2 Reflex Set [OM.PC] Stat 01/27/20 15:38 CULTURE BLOOD [BC] Stat 01/27/20 15:56 CULTURE BLOOD [BC] Stat 01/27/20 16:37 Sodium Chloride 0.9% [Saline Flush] 10 ml FLUSH ONETIME PRN 01/27/20 16:45 Sodium Chloride 0.9% [Normal Saline] 45 ml IV ASDIRECTED
[2020-01-27] MEDS ORDERED: Iopamidol 755 Mg/ML 100 ML Bottle IVPUSH ONE (16:37)
[2020-01-27] MEDS ORDERED: Sodium Chloride 0.9% 45 ML IV SCH (16:45)
--- NOTE | 2020-01-27 17:19 | CT ---
CT chest Technique: Multiple axial sections through the chest were obtained. Intravenous contrast was utilized. Comparison: Prior CT ches of 05/03/17 and 06/05/19. Findings: Visualized upper abdominal structures shows no discrete abnormality. No pericardial thickening is seen. Aorta shows no aneurysm. Pulmonary arteries show no filling defects to indicate pulmonary embolism. Mediastinum shows no adenopathy. No axillary adenopathy is identified. Severe emphysematous change is noted within both lungs. No acute parenchymal change is appreciated. Scarring is noted within both lung apices. Bone window settings were reviewed which shows no acute osseous finding. Impression: 1. Severe emphysematous change. 2. No findings of pulmonary embolism. 2. Nothing acute is otherwise is seen on CT study of the chest. Note: Prominent lymph nodes noted on prior study have diminished in size on current exam and are felt to be incidental. Diagnostic code #2 This report was dictated in MDT
== END 2020-01-27 18:06 | disposition home or self-care (01) ==
LOC: JD.ED 14:13
DX: J44.1 Chronic obstructive pulmonary disease with (acute) exacerbation (principal); E78.00 Pure hypercholesterolemia, unspecified; K21.9 Gastro-esophageal reflux disease without esophagitis; F41.9 Anxiety disorder, unspecified; F31.9 Bipolar disorder, unspecified; F17.210 Nicotine dependence, cigarettes, uncomplicated; Z79.899 Other long term (current) drug therapy
CPT/HCPCS: 36415; 71275; 80053; 83605; 84484; 85025; 87040; 93005; 94640; 96374; 99285; J2930; J7050; Q9967; J7620-GY

== ENCOUNTER 2020-02-12 19:10 | Emergency (ER) | payer MEDICARE, MEDICAID ==
[2020-02-12] MEDS ORDERED: Sodium Chloride 0.9% 10 ML Syringe FLUSH PRN (19:36)
[2020-02-12] MEDS ORDERED: Metoclopramide 10 MG/2 ML SDV IVPUSH ONE (19:37)
[2020-02-12] MEDS ORDERED: diphenhydrAMINE 50 MG/ML SDV IVPUSH ONE (19:37)
[2020-02-12] MEDS ORDERED: Ketorolac 30 MG/ML SDV IVPUSH ONE (19:37)
[2020-02-12 19:39] VITALS: BP 123/66; PULSE 120
--- NOTE | 2020-02-12 19:44 | EDM.PDOC ---
ED HPI GENERAL MEDICAL PROBLEM - General Chief Complaint: Headache Stated Complaint: VOMITING / HEADACHE Time Seen by Provider: 02/12/20 19:22 Source of Information: Reports: Patient History Limitations: Reports: No Limitations - History of Present Illness INITIAL COMMENTS - FREE TEXT/NARRATIVE: The patient presents with a headache. This has been going on for about 5 weeks. She has not been able to get in with her provider. She went to the ER in [place] last week. They did not do a CT of her head. She says the headache is on both sides of her head with nausea and vomiting at times. The pain is constant though. She has generalized weakness but no sided weakness. She has no fever, chills, cough, congestion, runny nose, chest pain, abdominal pain. She has COPD and she is on oxygen. She did not bring her oxygen with. Her oxygen saturations were 82% when she came back. Onset: Gradual Duration: Week(s): (5) Location: Reports: Head Quality: Reports: Sharp Severity: Severe Improves with: Reports: None Worsens with: Reports: None Associated Symptoms: Reports: Headaches, Nausea/Vomiting. Denies: Chest Pain, Cough, Fever/Chills, Shortness of Breath Headache Pain Score (Numeric/FACES): 8 - Related Data Allergies Allergy/AdvReac Type Severity Reaction Status Date / Time No Known Allergies Allergy Verified 09/08/19 17:33 Home Meds: Home Meds Omeprazole 40 mg PO DAILY PRN 02/22/16 [History] Sertraline [Zoloft] 100 mg PO BEDTIME 02/22/16 [History] traZODone HCl [Trazodone HCl] 150 mg PO BEDTIME 02/22/16 [History] Acetaminophen 1,000 mg PO DAILY PRN 11/27/17 [History] Albuterol [Proventil HFA] 1 - 2 puff INH ASDIRECTED PRN 11/27/17 [History] Albuterol/Ipratropium [DuoNeb 3.0-0.5 MG/3 ML] 3 ml .XX BID #60 neb 11/27/17 [Rx] Benztropine Mesylate 2 mg PO BEDTIME 11/27/17 [History] Budesonide/Formoterol Fumarate [Symbicort 80-4.5 Mcg Inhaler] 1 puff INH BID 11/27/17 [History] Albuterol/Ipratropium [DuoNeb 3.0-0.5 MG/3 ML] 3 ml .XX Q6H #60 neb 06/05/19 [Rx] QUEtiapine [SEROquel] 500 mg PO BEDTIME 02/12/20 [History] Zolpidem Tartrate [Ambien] 10 mg PO BEDTIME PRN #10 tablet 02/12/20 [Rx] Past Medical History HEENT History: Reports: Impaired Vision Other HEENT History: wears eyeglasses Cardiovascular History: Reports: High Cholesterol, SOB on Exertion Other Cardiovascular History: states "I've always had palpitations." Respiratory History: Reports: COPD, SOB Other Respiratory History: Emphysema Gastrointestinal History: Reports: GERD Genitourinary History: Reports: Other (See Below) Other Genitourinary History: leakage of bladder 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 Hematologic History: Reports: None Immunologic History: Reports: None Oncologic (Cancer) History: Reports: None Dermatologic History: Reports: None - Infectious Disease History Infectious Disease History: Reports: Chicken Pox - Past Surgical History HEENT Surgical History: Reports: Tonsillectomy Female Surgical History: Reports: Hysterectomy, Tubal Ligation Musculoskeletal Surgical History: Reports: Arthroscopic Knee Social & Family History - Family History Family Medical History: Noncontributory Cardiac: Reports: None Respiratory: Reports: None GI: Reports: None : Reports: None OBGYN: Reports: None Musculoskeletal: Reports: None Psychiatric: Reports: Schizophrenia Other Psychiatric Family History: sisters Endocrine/Metabolic: Reports: Diabetes, type II Other Endocrine/Metabolic Family History: mother and brother Hematologic: Reports: None Dermatologic: Reports: None Oncologic: Reports: None - Caffeine Use Caffeine Use: Reports: Soda - Living Situation & Occupation Living situation: Reports: Occupation: Unemployed ED ROS GENERAL - Review of Systems Review Of Systems: See Below Constitutional: Reports: No Symptoms HEENT: Reports: No Symptoms Respiratory: Reports: Shortness of Breath Cardiovascular: Reports: No Symptoms Endocrine: Reports: No Symptoms GI/Abdominal: Reports: Nausea, Vomiting. Denies: Abdominal Pain : Reports: No Symptoms Musculoskeletal: Reports: No Symptoms Skin: Reports: No Symptoms Neurological: Reports: Headache - Physical Exam Exam: See Below Exam Limited By: No Limitations General Appearance: Alert, No Apparent Distress Ears: Normal External Exam Nose: Normal Inspection Head Exam: Atraumatic, Normocephalic Neck: Normal Inspection, Supple, Non-Tender Respiratory/Chest: Decreased Breath Sounds Cardiovascular: Regular Rate, Rhythm, No Edema, No Murmur GI/Abdominal: Soft, Non-Tender, No Organomegaly, No Mass Neuro Exam (Abbreviated): Alert, Oriented, No Motor/Sensory Deficits Course - Vital Signs Last Recorded V/S: Last Vital Signs Temp 97.8 F 02/12/20 19:20 Pulse 120 H 02/12/20 19:20 Resp 20 02/12/20 19:20 BP 123/66 02/12/20 19:20 Pulse Ox 97 02/12/20 19:20 - Orders/Labs/Meds Orders: Active Orders 24 hr Category Date Time Status Peripheral IV Care [RC] . DIRECTED Care 02/12/20 19:36 Active Sodium Chloride 0.9% [Saline Flush] Med 02/12/20 19:36 Active 10 ml FLUSH ASDIRECTED PRN Peripheral IV Insertion Adult [OM.PC] Routine Oth 02/12/20 19:36 Ordered Medication Orders Sodium Chloride (Saline Flush) 10 ml FLUSH ASDIRECTED PRN PRN Reason: Keep Vein Open Last Admin: 02/12/20 19:53 Dose: 10 ml Documented by: CHARLEY Meds: Medications Generic Name Dose Route Start Last Admin Trade Name Freq PRN Reason Stop Dose Admin Sodium Chloride 10 ml 02/12/20 19:36 02/12/20 19:53 Saline Flush FLUSH 10 ml ASDIRECTED PRN Administration Keep Vein Open Discontinued Medications Generic Name Dose Route Start Last Admin Trade Name Freq PRN Reason Stop Dose Admin Diphenhydramine HCl 50 mg 02/12/20 19:37 02/12/20 19:52 Benadryl IVPUSH 02/12/20 19:38 50 mg ONETIME ONE Administration Ketorolac Tromethamine 30 mg 02/12/20 19:37 02/12/20 19:52 Toradol IVPUSH 02/12/20 19:38 30 mg ONETIME ONE Administration Metoclopramide HCl 10 mg 02/12/20 19:37 02/12/20 19:52 Reglan IVPUSH 02/12/20 19:38 10 mg ONETIME ONE Administration - Re-Assessments/Exams Free Text/Narrative Re-Assessment/Exam: 02/12/20 20:[address] of her head, IV saline lock, toradol 30mg IV, reglan 10mg IV, and benadryl 50mg IV. Her CT shows mild generalized atrophy. No acute intracranial abnormality is appreciated. She feels better. She says she has not been sleeping well for a few weeks. She is wondering if she could get some ambien. I will give her a few. Departure - Departure Time of Disposition: 20:50 Disposition: Home, Self-Care 01 Condition: Good Clinical Impression: Headache Qualifiers: Headache type: unspecified Headache chronicity pattern: acute headache Intractability: not intractable Qualified Code(s): R51 - Headache Insomnia Qualifiers: Insomnia type: unspecified Qualified Code(s): G47.00 - Insomnia, unspecified - Discharge Information *PRESCRIPTION DRUG MONITORING PROGRAM REVIEWED*: Not Applicable *COPY OF PRESCRIPTION DRUG MONITORING REPORT IN PATIENT SAMIR: Not Applicable Prescriptions: Zolpidem Tartrate [Ambien] 10 mg PO BEDTIME PRN #10 tablet PRN Reason: Sleep Referrals: Indy Davidson PA-C [Primary Care Provider] - 1 Week Forms: ED Department Discharge Additional Instructions: Take your medication as prescribed. Try the ambien at night to help you sleep. Follow up with Indy Davidson in the clinic. Please return if you are worse. Sepsis Event Note (ED) - Evaluation Sepsis Screening Result: No Definite Risk - Focused Exam Vital Signs: Vital Signs Temp Pulse Resp BP Pulse Ox 02/12/20 19:20 97.8 F 120 H 20 123/66 97 - My Orders Last 24 Hours: My Active Orders 02/12/20 19:36 Peripheral IV Care [RC] . DIRECTED Sodium Chloride 0.9% [Saline Flush] 10 ml FLUSH ASDIRECTED PRN Peripheral IV Insertion Adult [OM.PC] Routine - Assessment/Plan Last 24 Hours: My Active Orders 02/12/20 19:36 Peripheral IV Care [RC] . DIRECTED Sodium Chloride 0.9% [Saline Flush] 10 ml FLUSH ASDIRECTED PRN Peripheral IV Insertion Adult [OM.PC] Routine
--- NOTE | 2020-02-12 20:22 | CT ---
Head CT Technique: Multiple axial sections through the brain were obtained. Intravenous contrast was not utilized. Comparison: No prior intracranial imaging is available Findings: Ventricles along with basal cisterns and sulci over the convexities appear mildly prominent. No abnormal parenchymal densities are seen. No evidence of intracranial hemorrhage. No midline shift or mass-effect is seen. Bone window settings were reviewed. Visualized paranasal sinuses show nothing acute. Visualized mastoid sinuses show nothing acute. No acute calvarial finding is seen. Impression: 1. Mild generalized atrophy. 2. No acute intracranial abnormality is appreciated. Diagnostic code #2 This report was dictated in MDT
== END 2020-02-12 21:00 | disposition home or self-care (01) ==
LOC: JD.ED 19:10
DX: G47.00 Insomnia, unspecified (principal); J44.9 Chronic obstructive pulmonary disease, unspecified; K21.9 Gastro-esophageal reflux disease without esophagitis; F41.9 Anxiety disorder, unspecified; F31.9 Bipolar disorder, unspecified; F20.9 Schizophrenia, unspecified; Z79.899 Other long term (current) drug therapy
CPT/HCPCS: 70450; 96374; 96375; 99284; J1200; J1885; J2765

== ENCOUNTER 2020-02-14 20:41 | Emergency (ER) | payer MEDICARE | END 2020-02-14 21:35 | LOC: JD.ED 20:41 | DX: Z53.21 Procedure and treatment not carried out due to patient leaving prior to being seen by health care provider (principal) ==

== ENCOUNTER 2021-02-03 16:46 | Emergency (ER) | payer MEDICARE, SELFPAY ==
--- NOTE | 2021-02-03 17:26 | EDM.PDOC ---
ED HPI GENERAL MEDICAL PROBLEM - General Chief Complaint: Respiratory Problem Stated Complaint: LOW OXYGEN Time Seen by Provider: 02/03/21 17:12 Source of Information: Reports: Patient, RN Notes Reviewed History Limitations: Reports: No Limitations - History of Present Illness INITIAL COMMENTS - FREE TEXT/NARRATIVE: Patient is a 60 year old female presenting to the ER with c/o low oxygen saturation at home. She has COPD and is prescribed 2L/NC. She was unable to get her saturation above 71% at home even after increasing the flow rate. Pt was places on 2L/NC upon arrive to ER and is saturating 93-97%. Pt feels that her concentrator is not working. She denies any chest pain. She did have increased SOB however, this resolved with application of O2. Denies fever or ch ills. - Related Data Allergies Allergy/AdvReac Type Severity Reaction Status Date / Time No Known Allergies Allergy Verified 02/03/21 16:59 Home Meds: Home Meds Omeprazole 40 mg PO DAILY PRN 02/22/16 [History] Sertraline [Zoloft] 100 mg PO BEDTIME 02/22/16 [History] traZODone HCl [Trazodone HCl] 150 mg PO BEDTIME 02/22/16 [History] Acetaminophen 1,000 mg PO DAILY PRN 11/27/17 [History] Albuterol [Proventil HFA] 1 - 2 puff INH ASDIRECTED PRN 11/27/17 [History] Albuterol/Ipratropium [DuoNeb 3.0-0.5 MG/3 ML] 3 ml .XX BID #60 neb 11/27/17 [Rx] Benztropine Mesylate 2 mg PO BEDTIME 11/27/17 [History] Budesonide/Formoterol Fumarate [Symbicort 80-4.5 Mcg Inhaler] 1 puff INH BID 11/27/17 [History] Albuterol/Ipratropium [DuoNeb 3.0-0.5 MG/3 ML] 3 ml .XX Q6H #60 neb 06/05/19 [Rx] QUEtiapine [SEROquel] 500 mg PO BEDTIME 02/12/20 [History] Zolpidem Tartrate [Ambien] 10 mg PO BEDTIME PRN #10 tablet 02/12/20 [Rx] Past Medical History HEENT History: Reports: Impaired Vision Other HEENT History: wears eyeglasses Cardiovascular History: Reports: High Cholesterol, SOB on Exertion Other Cardiovascular History: states "I've always had palpitations." Respiratory History: Reports: COPD, SOB Other Respiratory History: Emphysema Gastrointestinal History: Reports: GERD Genitourinary History: Reports: Other (See Below) Other Genitourinary History: leakage of bladder ORTHOPEDIC PHYSICAL THERAPIST History: Reports: Musculoskeletal History: Reports: Back Pain, Chronic Neurological History: Reports: Concussion Psychiatric History: Reports: Anxiety, Bipolar, Schizophrenia Other Psychiatric History: borderline schizophrenia 2006 Endocrine/Metabolic History: Reports: Hyperthyroidism, Other (See Below) Other Endocrine/Metabolic History: episode of hyperthroid after --subsided after course of medication. Hematologic History: Reports: None Immunologic History: Reports: None Oncologic (Cancer) History: Reports: None Dermatologic History: Reports: None - Infectious Disease History Infectious Disease History: Reports: Chicken Pox - Past Surgical History HEENT Surgical History: Reports: Tonsillectomy Female Surgical History: Reports: Hysterectomy, Tubal Ligation Musculoskeletal Surgical History: Reports: Arthroscopic Knee Social & Family History - Family History Family Medical History: No Pertinent Family History Cardiac: Reports: None Respiratory: Reports: None GI: Reports: None : Reports: None OBGYN: Reports: None Musculoskeletal: Reports: None Psychiatric: Reports: Schizophrenia Other Psychiatric Family History: sisters Endocrine/Metabolic: Reports: Diabetes, type II Other Endocrine/Metabolic Family History: mother and brother Hematologic: Reports: None Dermatologic: Reports: None Oncologic: Reports: None - Tobacco Use Tobacco Use Status *Q: Current Every Day Tobacco User Years of Tobacco use: 41 Packs/Tins Daily: 1 Used Tobacco, but Quit: No Second Hand Smoke Exposure: No - Caffeine Use Caffeine Use: Reports: Coffee, Soda - Recreational Drug Use Recreational Drug Use: No - Living Situation & Occupation Living situation: Reports: Occupation: Unemployed ED ROS GENERAL - Review of Systems Review Of Systems: See Below Constitutional: Reports: No Symptoms. Denies: Fever, Chills HEENT: Reports: No Symptoms Respiratory: Reports: Shortness of Breath. Denies: Cough Cardiovascular: Reports: No Symptoms. Denies: Chest Pain Endocrine: Reports: No Symptoms GI/Abdominal: Reports: No Symptoms : Reports: No Symptoms Musculoskeletal: Reports: No Symptoms Skin: Reports: No Symptoms Neurological: Reports: No Symptoms Psychiatric: Reports: No Symptoms Hematologic/Lymphatic: Reports: No Symptoms Immunologic: Reports: No Symptoms ED EXAM, GENERAL - Physical Exam Exam: See Below General Appearance: Alert, WD/WN, No Apparent Distress Respiratory/Chest: No Respiratory Distress, Lungs Clear, No Accessory Muscle Use, Chest Non-Tender, Decreased Breath Sounds, Wheezing (occasional faint expiratory wheeze) Cardiovascular: Normal Peripheral Pulses, Regular Rate, Rhythm, No Edema, No Gallop, No JVD, No Murmur, No Rub GI/Abdominal: Normal Bowel Sounds, Soft, Non-Tender, No Organomegaly, No Distention, No Abnormal Bruit, No Mass Neurological: Alert, Oriented, CN II-XII Intact, Normal Cognition, Normal Gait, Normal Reflexes, No Motor/Sensory Deficits Psychiatric: Normal Affect, Normal Mood Skin Exam: Warm, Dry, Intact, Normal Color, No Rash Course - Vital Signs Last Recorded V/S: Last Vital Signs Temp 96.2 F L 02/03/21 18:20 Pulse 102 H 02/03/21 18:20 Resp 28 H 02/03/21 16:54 BP 102/89 02/03/21 18:20 Pulse Ox 94 L 02/03/21 18:20 - Re-Assessments/Exams Free Text/Narrative Re-Assessment/Exam: Patient is a 60-year-old female presenting to the emergency department with complaints of low oxygen saturation at home. She is prescribed 2 L of oxygen by nasal cannula. She was unable to get her oxygen saturations above 71% at home. On arrival to ER, she was placed on 2 L of oxygen by nasal cannula and has been saturating 94 to 97% since that time. She feels much better. Lung sounds are diminished but otherwise clear. Patient's concentrator is likely malfunctioning. We have placed a call to [facility] home companionbilingual call center representative for assistance troubleshooting her concentrator getting her a new one. We are waiting for callback. 02/03/21 18:13 [facility] went to the patient's house and switched out her concentrator. Her daughter is getting her portable concentrator in order to take her home. She is doing well. Discharge instructions as documented. Departure - Departure Time of Disposition: 18:13 Disposition: Home, Self-Care 01 Condition: Good Clinical Impression: COPD (chronic obstructive pulmonary disease) Qualifiers: COPD type: unspecified COPD Qualified Code(s): J44.9 - Chronic obstructive pulmonary disease, unspecified - Discharge Information *PRESCRIPTION DRUG MONITORING PROGRAM REVIEWED*: No Instructions: Chronic Obstructive Pulmonary Disease, [id number] Referrals: Indy Davidson PA-C [Primary Care Provider] - Forms: ED Department Discharge Additional Instructions: You were seen in the emergency department today for low oxygen saturations at home while using your concentrator. On arrival to ER, you were put on 2 L of oxygen and your oxygen saturations have maintained 94 to 97%. Your concentrator was switched out. Recommend using it as prescribed. If you experience any problems, please do not hesitate to take to return to the emergency department. Sepsis Event Note (ED) - Evaluation Sepsis Screening Result: No Definite Risk - Focused Exam Vital Signs: Vital Signs Temp Pulse Resp BP Pulse Ox 02/03/21 18:20 96.2 F L 102 H 102/89 94 L 02/03/21 17:38 102/59 L 94 L 02/03/21 17:16 97 02/03/21 16:54 98.7 F 93 28 H 148/52 H 105 H
[2021-02-03 18:21] VITALS: BP 102/89; PULSE 102
== END 2021-02-03 18:48 | disposition home or self-care (01) ==
LOC: JD.ED 16:46
DX: J43.9 Emphysema, unspecified (principal); K21.9 Gastro-esophageal reflux disease without esophagitis; Z72.0 Tobacco use; Z79.899 Other long term (current) drug therapy
CPT/HCPCS: 99283